=== PATIENT | female | born 1985 | race Caucasian/White ===

== ENCOUNTER 2018-09-17 07:26 | Inpatient (IN) ==
[2018-09-17] MEDS ORDERED: 0.9 % Sodium Chloride 1,000 ML IVC ONE (07:53)
[2018-09-17] MEDS ORDERED: Clindamycin 600 MG/50 ML 600 MG/50 ML IV.SOLN IVPB ONE (07:57)
[2018-09-17] MEDS ORDERED: Lidocaine/EPI 1:100k 1% 50 ML VIAL INFILT ONE (07:58)
[2018-09-17] MEDS ORDERED: Tdap (Boostrix) Vaccine 0.5 ML SYRINGE IM ONE (08:02)
--- NOTE | 2018-09-17 08:04 | Emergency Department Note ---
Disposition Clinical Impression: Cellulitis and abscess of upper arm and forearm Cellulitis Qualifiers: Site of cellulitis: extremity Site of cellulitis of extremity: lower extremity Laterality: right Qualified Code(s): L03.115 - Cellulitis of right lower limb Abscess of skin or subcutaneous tissue Qualifiers: Site of cutaneous abscess: extremity Site of cutaneous abscess of extremity: lower extremity Laterality: right Qualified Code(s): L02.415 - Cutaneous abscess of right lower limb Disposition: Admitted As Inpatient Condition: Fair Time of Disposition: 09:00 Skin/Abscess/FB HPI Chief complaint: ED Skin/Abscess/Foreign Body Stated complaint: RLE/LUE abscess Time Seen by Provider: 09/17/18 07:31 Source: patient, family Mode of arrival: private vehicle Limitations: no limitations Nursing Notes Reviewed: Yes Vital Signs Reviewed: Yes Pt Subjective Complaint: abscess/boil, discoloration Onset (ago): week(s) (1) Tetanus Up to Date: no Location: LUE (wrist), R foot Severity: moderate Quality: burning, aching Consistency: constant Improves with: none Worsens with: palpation, other (weight bearing increases pain, but movement of toes/fingers does NOT increase the pain) Context: other (Drug use, but patient currently denies IV drug use. ) Associated symptoms: Reports: nausea, malaise. Denies: fever, chills, rigors, itching, vomiting, arthralgias, myalgias, cough, shortness of breath Treatments prior to arrival: bandages, OTC topical medication (Betadine) Home Medications Medication Instructions Recorded Confirmed No Known Home Drugs 09/17/18 09/17/18 Allergies Allergy/AdvReac Type Severity Reaction Status Date / Time No Known Allergies Allergy Verified 09/17/18 14:36 All systems ED: reviewed and negative except as stated. Review of Systems: As Per HPI Constitutional: Denies: fever, chills, weakness Cardiovascular: Denies: chest pain, palpitations Respiratory: Denies: cough, dyspnea, wheezes Gastrointestinal: Reports: nausea. Denies: abdominal pain, vomiting Musculoskeletal: Denies: back pain, neck pain, joint swelling, arthralgia, myalgia Integumentary: Denies: rash, pruritus Neurological: Denies: weakness, numbness, paresthesias Hematological/Lymphatic: Denies: easy bleeding, easy bruising, lymphadenopathy Past Medical History - Past Medical History Attestation: Yes The following information was validated with the patient. Source: patient Medical history: Reports: non-contributory Surgical history: Reports: Psychiatric history: Reports: no psych history LMP comments: week(s) (4) - Social History Smoking Status: Current every day smoker Smokeless Tobacco Status: No Alcohol use: Reports: none Drug use: Reports: opiates, methamphetamine Physical Exam - General Limitations: no limitations General appearance: alert, in no apparent distress - Head Head exam: atraumatic, normocephalic, normal inspection - Eye Eye exam: Present: normal appearance. Absent: scleral icterus, conjunctival injection, periorbital swelling - ENT ENT exam: mucous membranes moist - Neck Neck exam: Present: normal inspection, full ROM, trachea midline. Absent: meningismus - Respiratory Respiratory exam: Present: normal lung sounds bilaterally. Absent: respiratory distress - Cardiovascular Cardiovascular exam: Present: regular rate, normal rhythm - Extremities Exam Extremities exam: Present: full ROM, normal capillary refill. Absent: joint swelling, calf tenderness - Expanded Lower Extremity Exam Hip/Pelvis exam: Present: full ROM Knee exam: Present: normal inspection, full ROM. Absent: tenderness Lower leg exam: Present: normal inspection, Achilles tendon intact. Absent: tenderness, Homans' sign Ankle exam: Present: erythema. Absent: tenderness Foot/toe exam: Present: tenderness, swelling, erythema, other (abscess and cellulitis) 1 - cellulitis 2 - lymphangitis 3 - abscess Neurovascular/Tendon exam: Present: normal capillary refill, normal fine/light touch, other (No pain with passive or active ROM of the right toes). Absent: pulse deficit, motor deficit, sensory deficit, extremity cold to touch, pallor, foot drop, significant pain with passive ROM of distal joint Gait: observed and limited by pain, antalgic - Back Exam Back exam: Present: normal inspection - Neurological Exam Neurological exam: Present: alert, oriented X3, CN II-XII intact - Psychiatric Psychiatric exam: Present: normal affect, normal mood - Skin Skin exam: Present: warm, dry, intact, normal color Course Vital Signs Temperature 98.3 F 09/17/18 07:28 Pulse Rate 87 09/17/18 07:28 Respiratory Rate 18 09/17/18 07:28 Blood Pressure 117/80 09/17/18 07:28 O2 Sat by Pulse Oximetry 99 09/17/18 07:28 Temperature 98.1 F 09/17/18 15:14 Pulse Rate 70 09/17/18 15:14 Respiratory Rate 16 09/17/18 15:14 Blood Pressure 122/79 09/17/18 15:14 O2 Sat by Pulse Oximetry 98 09/17/18 15:14 Oxygen Delivery Oxygen Delivery Room Air Skin/Abscess/Foreign Body - Lab Data Result diagrams: 09/17/18 08:19 09/17/18 08:19 Lab Results 09/17/18 09/17/18 09/17/18 Range/Units 08:19 08:19 08:30 WBC 11.5 H (4.3-11.1) K/mcL RBC 3.48 L (3.82-4.97) M/mcL Hgb 11.7 (11.5-15.4) g/dL Hct 34.9 L (35.3-44.9) % MCV 100.3 H (83.0-100.0) fL MCH 33.6 H (28.0-33.3) pg MCHC 33.5 (31.6-35.5) g/dL RDW 12.2 (11.5-14.5) % Plt Count 153 (140-400) K/mcL MPV 10.8 (9.4-12.4) fL Immature Gran % 0.4 (0-4) % Seg Neutrophils % 77.2 % Lymphocytes % 13.3 % Monocytes % 7.1 % Eosinophils % 1.7 % Basophils % 0.3 % Neutrophils # 8.9 (1.6-8.9) K/mcL Lymphocytes # 1.5 (0.6-4.6) K/mcL Monocytes # 0.8 (0.0-1.3) K/mcL Eosinophils # 0.2 (0.0-0.6) K/mcL Basophils # 0.0 (0.0-0.2) K/mcL Reactive Lymphocytes Present A (Not Present) Platelet Estimate Normal (Normal) Sodium 139 (136-145) mEq/L Potassium 4.0 (3.5-5.1) mEq/L Chloride 108 H (98-107) mEq/L Carbon Dioxide 25 (23-29) mEq/L BUN 20 (6-20) mg/dL Creatinine 1.06 (0.60-1.20) mg/dL Est GFR ( Amer) > 60 (> 60) Est GFR (Non-Af Amer) > 60 (> 60) BUN/Creatinine Ratio 19 (6-26) Glucose 86 (70-105) mg/dL Calculated Osmolality 290 (280-300) Calcium 8.6 (8.6-10.3) mg/dL Urine Test Negative (Negative) Attestation Statement - Attestation Attestation: Patient was seen with resident physician. I reviewed the history, physical, assessment and plan, and agree with the findings. I also personally evaluated this patient and had [id number] time with this patient. 32-year-old female presents to the emergency department with multiple abscesses at IV drug injection sites. Patient states symptoms of been ongoing for greater than a week. Comes in today for evaluation and treatment. She has some diaphoresis along with that. She is not sure about fevers or chills. Review of systems as above remainder negative. Physical exam vital signs are stable. ENT is unremarkable. Heart regular rate. Lungs clear. Abdomen is soft and nontender. Extremities patient has abscesses in the right foot and left wrist. Neurologically intact. Skin abscesses as noted. Psych normal. ED course. Abscesses were drained. The one in the foot especially was very purulent and foul-smelling. Patient was started on IV antibiotics. She will need to be admitted for same. Hemodynamically she remained stable in the emerge ncy department. Agree with the physician assistant kitchen manager assessment and plan. We notified the hospitalist service as to the need for admission and agreed to accept the patient. ED procedures. 2 abscess drainages were performed by physician assistant kitchen manager. I was available for consultation as indicated and needed.
[2018-09-17 08:59] LABS: Basophils % 0.3 %; Eosinophils # 0.2 K/mcL (0.0-0.6); Eosinophils % 1.7 %; Hematocrit 34.9 % (35.3-44.9); Hemoglobin 11.7 g/dL (11.5-15.4); Immature Granulocytes % 0.4 % (0-4); Lymphocytes # 1.5 K/mcL (0.6-4.6); Lymphocytes % 13.3 %; Mean Corpuscular HGB Conc 33.5 g/dL (31.6-35.5); Mean Corpuscular Hemoglobin 33.6 pg (28.0-33.3); Mean Corpuscular Volume 100.3 fL (83.0-100.0); Mean Platelet Volume 10.8 fL (9.4-12.4); Monocytes # 0.8 K/mcL (0.0-1.3); Monocytes % 7.1 %; Neutrophils # 8.9 K/mcL (1.6-8.9); Platelet Count 153 K/mcL (140-400); Red Blood Count 3.48 M/mcL (3.82-4.97); Red Cell Distribution Width 12.2 % (11.5-14.5); Segmented Neutrophils % 77.2 %; White Blood Count 11.5 K/mcL (4.3-11.1)
[2018-09-17] MEDS ORDERED: Ondansetron 4 MG/2 ML VIAL IVP ONE (09:00)
[2018-09-17 09:02] LABS: Platelet Estimate Normal (Normal); Reactive Lymphocytes Present (Not Present)
[2018-09-17] MEDS ORDERED: Ondansetron 4 MG/2 ML VIAL ONE (09:02)
[2018-09-17 09:04] LABS: BUN/Creatinine Ratio 19 (6-26); Blood Urea Nitrogen 20 mg/dL (6-20); Calcium 8.6 mg/dL (8.6-10.3); Carbon Dioxide 25 mEq/L (23-29); Chloride 108 mEq/L (98-107); Glucose 86 mg/dL (70-105); Osmolality,Calculated 290 (280-300); Sodium 139 mEq/L (136-145); eGFR For African Americans > 60 (> 60); eGFR For Non-African Americans > 60 (> 60)
[2018-09-17] MEDS ORDERED: Ketorolac 15 MG/ML VIAL IVP ONE (09:22)
[2018-09-17] MEDS ORDERED: levoFLOXacin 500 MG/100 ML 500 MG/100 ML BAG IVPB ONE (09:29)
[2018-09-17] MEDS ORDERED: Naloxone 0.4 MG/ML INJ IVP PRN (09:45)
--- NOTE | 2018-09-17 09:46 | Internal Med History&Physical ---
Date of Encounter: 09/17/18 Time of Encounter: 09:45 Internal Medicine - H&P: HPI Chief complaint: foot pain and wound Admitted From: Home Plans for Post Hospital Care: Home History of present illness: Ms. Barrera is a 32 year old female with a past medical history of IV drug use including amphetamines cocaine and opiates came in complaining of 5 day history of swelling, redness and tenderness on the right foot and left wrist. She used IV fentanyl obtained from streets diluted with tap water through her wrist and right foot. Patient subsequently noticed redness and swelling the next day at the same site. She did not seek any medical attention. The redness swelling and pain significantly got worse over the next 4 days. Patient lives with mother noticed significant redness of right foot and brought her to the ER. Patient was evaluated in the ER was found to have extensive cellulitis and abscess on the right dorsum of the foot which was drained and packed as well as small abscess on the left forearm about 4-5 cm proximal to wrist which was also drained and packed. Patient was given clindamycin pending urine test. Patient did not report any fevers but mention feeling sick. Denies having any lightheadedness dizziness or syncopal episodes. Denies any chest pain difficulty breathing abdominal pain nausea vomiting or diarrhea. Patient denies getting any antibiotics over the past year. Patient was given 1 L of normal saline, tetanus booster and clindamycin in ER. Her urine test is negative. Of note when foot abscess was drained patient and family reported muddy color discharge with very foul smell. Podiatry was consulted. XR foot pending. She denies any allergies and currently not on any medications. Past Med Surg Social Fam HX - Past Medical History Medical history: non-contributory Psychiatric history: no psych history - Past Surgical History Additional surgical history: , tonsillectomy, appendectomy - Social History Smoking Status: Current every day smoker Smokeless Tobacco Status: No Alcohol use: none Drug use: opiates - Additional Family History Additional family history: Reviewed and non-contributory Internal Medicine - H&P: Meds Depo Shot 02/22/16 [History] cephALEXin [Keflex] 500 mg PO TID #21 capsule 03/09/17 [Rx] Allergy/AdvReac Type Severity Reaction Status Date / Time No Known Allergies Allergy Verified 03/09/17 16:01 All Systems PM: A 10-system review of systems was performed and is negative for pertinent findings except as documented above in the HPI. - Constitutional Vitals: Temp Pulse Resp BP Pulse Ox 98.3 F 82 18 119/78 99 09/17/18 08:46 09/17/18 08:46 09/17/18 08:46 09/17/18 08:46 09/17/18 08:46 Exam: Constitutional: Vitals as noted. Conversant. No Apparent Distress. Eyes : Sclera white, conjunctiva clear, no lid lag, PEARLA. ENT : Grossly normal hearing. Oropharyngeal exam unremarkable. Moist mucus membranes. No JVD, no cervical lymphadenopathy. no thyromegaly or mass. Respiratory : Clear to auscultation bilaterally. No accessory muscle use, rales, rhonchi or wheezes Cardiovascular : RRR, +S1, +S2. no murmur, gallop, rubs. No chest wall tenderness GI/Abdominal : Soft, Non-tender, Non-distended, normal bowel sounds, no peritoneal signs. no orgenomegaly or mass appreciated. no hernia. Musculoskeletal: no edema, warm extremities, pulses palpable and symmetrical in UE/LE. no calf tenderness. 2 cm incision with erythema pain and swelling extending to ankle. Foul smelling drainage. 0.5 cm incision with bandage on Lt wrist with minimal redness,pain and swelling. Intact sensation and mobility on all extremities Neurological: AO X3, CN II-XII grossly intact, grossly normal motor and sensory exam. Skin: as above Internal Med - H&P Results - Labs CBC & Chem 7: 09/17/18 08:19 09/17/18 08:19 Labs: Short CBC 09/17/18 Range/Units 08:19 WBC 11.5 H (4.3-11.1) K/mcL Hgb 11.7 (11.5-15.4) g/dL Hct 34.9 L (35.3-44.9) % Plt Count 153 (140-400) K/mcL Neutrophils # 8.9 (1.6-8.9) K/mcL BMP 09/17/18 08:19 Sodium 139 Potassium 4.0 Chloride 108 H Carbon Dioxide 25 BUN 20 Creatinine 1.06 Glucose 86 Calcium 8.6 - Assessment and Plan (1) Cellulitis and abscess of foot Current Visit: Yes Status: Acute Assessment and plan: Abscess and right foot and left forearm now drained in ER and with packing. Had extensive associated cellulitis extending to the ankle on Rt foot. Antibiotics broadened to vancomycin and Zosyn for now. Does not appear to be in sepsis. Obtain MRSA screening. Denies any antibiotic use in the last year. Without any other stigmata of endocarditis. No fevers or murmurs Follow-up wound and blood cultures. Possibility of anaerobic infection given foul-smelling discharge. Follow-up x-ray of the foot. Podiatry has been consulted. We will consider ID depending on hospital course. (2) Cellulitis and abscess of upper arm and forearm Current Visit: Yes Status: Acute Assessment and plan: As above (3) IVDU (intravenous drug user) Current Visit: Yes Status: Acute Assessment and plan: Patient admits to using fentanyl at the site of infection. Previously was on Suboxone program but was dismissed from the program as she took fentanyl herself. Patient is willing to participate in drug rehabilitation. Will obtain social media job titles consult. - Time Spent With Patient Total time spent is greater than 50% in coordination of care (as documented) at patient's floor/unit and/or counseling patient:
[2018-09-17] MEDS ORDERED: Ketorolac 15 MG/ML VIAL IVP PRN (09:57)
[2018-09-17] MEDS ORDERED: Acetaminophen 325 MG TABLET PO PRN (09:59)
[2018-09-17] MEDS: Piperacillin/Tazobactam 3.375 GM in 0.9 % Sodium Chloride Mini Bag 100 ML IVPB SCH ×3 (11:46→23:49)
[2018-09-17] MEDS: Nicotine 14 MG PATCH.TD24 TD SCH (15:27)
[2018-09-18 08:17] LABS: Basophils % 0.4 %; Eosinophils # 0.2 K/mcL (0.0-0.6); Eosinophils % 2.4 %; Hematocrit 35.1 % (35.3-44.9); Hemoglobin 11.9 g/dL (11.5-15.4); Immature Granulocytes % 0.4 % (0-4); Lymphocytes # 1.9 K/mcL (0.6-4.6); Lymphocytes % 21.9 %; Mean Corpuscular HGB Conc 33.9 g/dL (31.6-35.5); Mean Corpuscular Hemoglobin 33.3 pg (28.0-33.3); Mean Corpuscular Volume 98.3 fL (83.0-100.0); Mean Platelet Volume 10.5 fL (9.4-12.4); Monocytes # 0.4 K/mcL (0.0-1.3); Monocytes % 4.7 %; Platelet Count 168 K/mcL (140-400); Red Blood Count 3.57 M/mcL (3.82-4.97); Red Cell Distribution Width 12.1 % (11.5-14.5); Segmented Neutrophils % 70.2 %; White Blood Count 8.5 K/mcL (4.3-11.1)
[2018-09-18 08:34] LABS: BUN/Creatinine Ratio 20 (6-26); Blood Urea Nitrogen 22 mg/dL (6-20); Calcium 8.6 mg/dL (8.6-10.3); Carbon Dioxide 25 mEq/L (23-29); Chloride 107 mEq/L (98-107); Glucose 96 mg/dL (70-105); Osmolality,Calculated 295 (280-300); Potassium 4.1 mEq/L (3.5-5.1); Sodium 141 mEq/L (136-145); eGFR For African Americans > 60 (> 60); eGFR For Non-African Americans 59 (> 60)
[2018-09-18] MEDS: Piperacillin/Tazobactam 3.375 GM in 0.9 % Sodium Chloride Mini Bag 100 ML IVPB SCH ×2 (08:37→15:41)
[2018-09-18] MEDS: Nicotine 14 MG PATCH.TD24 TD SCH (08:38)
[2018-09-18] MEDS ORDERED: Acetaminophen 325 MG TABLET PO PRN (11:19)
[2018-09-18] MEDS: Ketorolac 15 MG/ML VIAL IVP PRN ×2 (12:05→17:44)
[2018-09-18] MEDS: hydrOXYzine pamoate 25 MG CAPSULE PO PRN ×2 (12:05→17:44)
[2018-09-18] MEDS: Ondansetron 4 MG/2 ML VIAL IVP SCH ×2 (12:06→15:48)
--- NOTE | 2018-09-18 13:23 | Internal Med Progress Note ---
Hospitalist Progress Note - Encounter Date of Encounter: 09/18/18 Time of Encounter: 10:00 - Subjective Interval History: No major events overnight. Patient was seen this a.m. sHe denied fever, chills or night sweats. sHe has no nausea, vomiting or abdominal pain. Patient denied chest pain, shortness of breath or palpitation. She feels that she is anxious and she is withdrawing from opiates. - Exam Vitals: Temp Pulse Resp BP Pulse Ox 98.2 F 76 15 112/73 98 09/18/18 10:14 09/18/18 10:14 09/18/18 10:14 09/18/18 10:14 09/18/18 10:14 Exam: General: Patient is alert, oriented 3. No acute distress Head: Atraumatic, normal inspection, normocephalic. Eye: EOMI, PERRLA, no scleral icterus noted. ENT: Mucous membranes moist. Neck: Normal inspection, Respiratory: No respiratory distress, rhonchi, or wheezes noted. Cardiovascular: Regular rate and regular rhythm, S1 and S2 audible. No murmurs, rubs, or gallops. GI: Soft, nondistended, normal bowel sounds. Extremities: Right LE dressing and left UE dressing. Neurological: Alert, oriented 3, no focal deficits. Psychiatric: normal affect, normal mood. Skin: Dry, intact, warm. Normal color. No rashes. - Assessment and Plan (1) Cellulitis and abscess of foot Current Visit: Yes Status: Acute (2) Cellulitis and abscess of upper arm and forearm Current Visit: Yes Status: Acute (3) IVDU (intravenous drug user) Current Visit: Yes Status: Acute (4) Opiate withdrawal Current Visit: Yes Status: Acute - Summary of Assessment and Plan Summary of Assessment and Plan: Ms. Barrera is a 32 year old female with a past medical history of IV drug use including amphetamines cocaine and opiates came in complaining of 5 day history of swelling, redness and tenderness on the right foot and left wrist. he used IV fentanyl obtained from streets diluted with tap water through her wrist and right foot. her symptoms are managed as following: Right foot abscess: - s/p I&D in the ER, cultures are pending. - She is afebrile, hemodynamically stable. Leukocytosis improved. MRSA swab is positive - Foot x ray: Focal dorsal soft tissue swelling along the metatarsal. No signs of OM. - On renally dosed vancomycin and Zosyn. We will continue - Tylenol for mild pain, Toradol for moderate to severe pain. We will absolutely avoid opiates. - Check CBC tomorrow Left upper extremity abscess: - s/p I&D in the ER, cultures are pending. - Management as per above Opiate withdrawal: - Zofran for nausea number Imodium for diarrhea, Vistaril for anxiety. Discussed with pharmacist and RN. IV drug abuse: - bingo worker consult place. - Patient is interested to go to methadone clinic after discharge DVT prophylaxis: Not Indicated as the patient is ambulating. I reviewed independently all laboratory workup, pertinent images including x- rays and CT scans. I also reviewed independently and EKGs and my findings are in the body of my assessment and plan. I ordered the laboratory workup and images myself. I discussed finding with patient's, their families, RN's and consultants involved in the care of the patient. - Time Spent with Patient Total time spent is greater than 50% in coordination of care (as documented) at patient's floor/unit and/or counseling patient: Greater than 35 minutes Plan of Care Discussed with: patient Internal Medicine: Result - Labs CBC & Chem 7: 09/18/18 07:56 09/18/18 07:56 Labs: Short CBC 09/18/18 Range/Units 07:56 WBC 8.5 (4.3-11.1) K/mcL Hgb 11.9 (11.5-15.4) g/dL Hct 35.1 L (35.3-44.9) % Plt Count 168 (140-400) K/mcL Neutrophils # 6.0 (1.6-8.9) K/mcL BMP 09/18/18 07:56 Sodium 141 Potassium 4.1 Chloride 107 Carbon Dioxide 25 BUN 22 H Creatinine 1.09 Glucose 96 Calcium 8.6 Consult Discharge Plan - Plan Referrals: NONE,PCP [Primary Care Provider] -
--- NOTE | 2018-09-18 17:45 | Podiatry Consult Note ---
Date of Encounter: 09/18/18 Time of Encounter: 14:26 Assessment and Plan (1) Cellulitis and abscess of foot Current visit: Yes Status: Acute Assessment: Right foot ulcer with purulent drainage upon palpation of forefoot WBC 8.5, afebrile Wound cultures pending, blood cultures pending Erythema and edema noted, does not extend beyond demarcation line XR negative for osseus abnormality Currently on zosyn and vancomycin Plan: MR ordered of right foot to evaluate for abscess Continue local wound care and IV ATB Cleansed foot with 0.9 NS, packed with 1/4 inch iodaform gauze, covered with 4x4 dry gauze, ABD pad, kerlix, and medipore History of Present Illness Chief complaint: Right foot ulcer HPI: Ms. Barrera is a 32 year old female who presented to the ER yesterday for right foot ulceration. Patient has no past medical history. Patient reports she is IV drug abuser, mainly abuses heroin. Reports smoking half pack a day. Denies any alcohol abuse. Briefly, patient reports injecting IV heroin on Tuesday and stating she missed. Reports increased edema and erythema. Reports pain was intolerable on Tuesday and mother brought her to the ER on Tuesday. Again Ms. Barrera is a 32-year-old female who was consulted to podiatry for a right foot ulceration. X-ray upon admission was negative for any osseous abnormality. WBC 8.5. Cultures pending. Denies any fevers, chills, nausea, vomiting, or diarrhea. Denies any calf pain, chest pain, or shortness of breath. Reports improvement in erythema and edema since starting IV antibiotics. No other questions or concerns at this time. Past Med Surg Social Fam HX - Past Medical History Medical history: non-contributory Psychiatric history: no psych history - Past Surgical History Surgical History: appendectomy, Additional surgical history: tonsilectomy - Social History Smoking Status: Current every day smoker Packs per day: 1/2 Smokeless Tobacco Status: No Alcohol use: none Drug use: opiates, methamphetamine, IV Drug Use Medications and Allergies No Known Home Drugs 09/17/18 [History] Allergy/AdvReac Type Severity Reaction Status Date / Time No Known Allergies Allergy Verified 09/17/18 14:36 All Systems Reviewed: The remainder of the systems were reviewed and are negative - Constitutional Constitutional: no fever(s) - Cardiovascular Cardiovascular: pedal edema, other (pedal ulcer), no chest pain - Respiratory Respiratory: no cough, no dyspnea - Musculoskeletal Musculoskeletal: other (edema and pain right foot) Physical Exam - Constitutional Vitals: Temp Pulse Resp BP Pulse Ox 98.5 F 101 16 112/73 96 09/18/18 15:09 09/18/18 15:09 09/18/18 15:09 09/18/18 15:09 09/18/18 15:09 Exam: Constitiutional: Alert and oriented x 3. Well nourished. No acute distress noted Vascular: 3/4 DP/PT RLE CFT <3 sec to all digits RLE, warm to warm from tibia to toes RLE, no calf pain with squeeze RLE Neurologic: Sensation to touch, normal plantar response Dermatologic: Erythema and edema noted to right foot, does not extend beyond demarcation line, ulceration noted to right forefoot measuring 2 x 0.7 x 0.3 cm, purulent drainage noted, no undermining or tunneling noted Musculoskeletal: 5/5 muscle strength and normal tone RLE Results - Labs Result Diagrams: 09/18/18 07:56 09/18/18 07:56 Labs: Abnormal lab results WBC 11.5 K/mcL (4.3-11.1) H 09/17/18 08:19 RBC 3.57 M/mcL (3.82-4.97) L 09/18/18 07:56 Hct 35.1 % (35.3-44.9) L 09/18/18 07:56 MCV 100.3 fL (83.0-100.0) H 09/17/18 08:19 MCH 33.6 pg (28.0-33.3) H 09/17/18 08:19 Reactive Lymphocytes Present (Not Present) A 09/17/18 08:19 Chloride 108 mEq/L (98-107) H 09/17/18 08:19 BUN 22 mg/dL (6-20) H 09/18/18 07:56 Est GFR (Non-Af Amer) 59 (> 60) L 09/18/18 07:56 Nasal Screen MRSA (PCR) Positive (Negative) A 09/17/18 14:25 H & H 07/15/19 Range/Units 07:56 Hgb 11.9 (11.5-15.4) g/dL Hct 35.1 L (35.3-44.9) % All other labs normal. - Diagnostic results Ankle/Foot x-ray: report reviewed Consult Discharge Plan - Plan Referrals: NONE,PCP [Primary Care Provider] -
[2018-09-19] MEDS: Ondansetron 4 MG/2 ML VIAL IVP SCH ×4 (02:21→19:48)
[2018-09-19] MEDS: Piperacillin/Tazobactam 3.375 GM in 0.9 % Sodium Chloride Mini Bag 100 ML IVPB SCH ×3 (02:22→15:55)
[2018-09-19 07:38] LABS: Hematocrit 36.2 % (35.3-44.9); Hemoglobin 12.2 g/dL (11.5-15.4); Mean Corpuscular HGB Conc 33.7 g/dL (31.6-35.5); Mean Corpuscular Hemoglobin 33.4 pg (28.0-33.3); Mean Corpuscular Volume 99.2 fL (83.0-100.0); Mean Platelet Volume 10.3 fL (9.4-12.4); Platelet Count 209 K/mcL (140-400); Red Blood Count 3.65 M/mcL (3.82-4.97); Red Cell Distribution Width 12.2 % (11.5-14.5)
[2018-09-19 07:57] LABS: BUN/Creatinine Ratio 19 (6-26); Blood Urea Nitrogen 23 mg/dL (6-20); Calcium 8.8 mg/dL (8.6-10.3); Carbon Dioxide 26 mEq/L (23-29); Chloride 107 mEq/L (98-107); Glucose 84 mg/dL (70-105); Osmolality,Calculated 299 (280-300); Potassium 4.1 mEq/L (3.5-5.1); Sodium 143 mEq/L (136-145); eGFR For African Americans > 60 (> 60); eGFR For Non-African Americans 51 (> 60)
[2018-09-19] MEDS: Ketorolac 15 MG/ML VIAL IVP PRN ×2 (08:26→15:54)
[2018-09-19] MEDS: hydrOXYzine pamoate 25 MG CAPSULE PO PRN ×2 (08:27→15:55)
[2018-09-19] MEDS: Nicotine 14 MG PATCH.TD24 TD SCH (08:27)
[2018-09-19] MEDS: Ringers Solution, Lactated 1,000 ML IVC SCH (11:18)
--- NOTE | 2018-09-19 14:43 | Podiatry Progress Note ---
Date of Encounter: 09/19/18 Time of Encounter: 13:28 - Assessment and Plan (1) Cellulitis and abscess of foot Current Visit: Yes Status: Acute Assessment: Right foot ulcer with purulent drainage upon palpation of forefoot Tunneling WBC 7.0, afebrile noted to 5 o'clock, 2 cm Wound cultures gram negative rods x 2 specimens, blood cultures pending Erythema and edema noted, does not extend beyond demarcation line, improved from previous XR negative for osseus abnormality Currently on zosyn and vancomycin Plan: MR ordered of right foot to evaluate for abscess, pending Continue local wound care and IV ATB Plan for OR tomorrow NPO after MN Cleansed foot with 0.9 NS, packed with 1/4 inch iodaform gauze, covered with 4x4 dry gauze, ABD pad, kerlix, and medipore Subjective Interval history: Patient awake in bed. Alert and oriented x 3. Discussed need for surgical intervention, patient agreeable. Denies any fevers, chills, nausea, vomiting, or diarrhea. Denies any calf pain, chest pain, or shortness of breath. No other questions or concerns at this time. Objective - Vital Signs Vital Signs: Vital Signs Temp Pulse Resp BP Pulse Ox 09/19/18 14:11 98.6 F 70 15 110/71 99 09/19/18 10:51 98.5 F 71 15 121/81 98 09/19/18 07:43 98.4 F 60 15 119/78 97 09/19/18 04:41 98.2 F 60 15 119/71 97 09/18/18 20:18 98.5 F 14 14 114/77 98 09/18/18 15:09 98.5 F 101 16 112/73 96 Intake and Output 09/18/18 09/19/18 09/19/18 23:59 07:59 15:59 Intake Total 470 / 1890 150 / 620 470 / 620 Balance 470 / 1890 150 / 620 470 / 620 Intake: IV Fluids 350 / 1050 150 / 500 350 / 500 Cleocin Premix 600 MG/50 ML 600 50 / 50 mg In 50 ml @ 50 mls/hr IVPB ONCE ONE Rx#:[id number] Zosyn 3.375 GM In 0.9 % Sodium 100 / 300 100 / 200 100 / 200 Chloride (Mini-Bag +) 100 ML @ 25 mls/hr IVPB Q8HR [facility] Rx#: [id number] Vancocin 1,000 MG In 0.9 % 250 / 750 250 / 250 Sodium Chloride 250 ML @ 167 mls/hr IVPB Q12H [facility] Rx#: [id number] Oral 120 / 840 120 / 120 Other: Meal Dinner Percent of Meal Consumed 50% # Voids 1 # Bowel Movements 1 Weight 72 kg Patient Weight 09/19/18 23:59 Weight 72 kg - Lab Result Diagrams: 09/19/18 06:51 09/19/18 06:51 Labs: Abnormal lab results WBC 11.5 K/mcL (4.3-11.1) H 09/17/18 08:19 RBC 3.65 M/mcL (3.82-4.97) L 09/19/18 06:51 Hct 35.1 % (35.3-44.9) L 09/18/18 07:56 MCV 100.3 fL (83.0-100.0) H 09/17/18 08:19 MCH 33.4 pg (28.0-33.3) H 09/19/18 06:51 Reactive Lymphocytes Present (Not Present) A 09/17/18 08:19 Chloride 108 mEq/L (98-107) H 09/17/18 08:19 BUN 23 mg/dL (6-20) H 09/19/18 06:51 Creatinine 1.23 mg/dL (0.60-1.20) H 09/19/18 06:51 Est GFR (Non-Af Amer) 51 (> 60) L 09/19/18 06:51 Nasal Screen MRSA (PCR) Positive (Negative) A 09/17/18 14:25 Vancomycin Trough 13 mcg/mL (5-10) H 09/19/18 09:08 Microbiology, Last 48 Hours 09/17/18 09:10 Wound Culture - Preliminary Right Foot Gram Negative Juan Gram Negative Juan#2 09/17/18 08:19 Blood Culture - Preliminary Peripheral Venipuncture Culture is incubating and being continuously monitored for growth. Final report to follow. 09/17/18 09:59 Blood Culture - Preliminary Peripheral Venipuncture Culture is incubating and being continuously monitored for growth. Final report to follow. Consult Discharge Plan - Plan Referrals: NONE,PCP [Primary Care Provider] -
--- NOTE | 2018-09-19 15:52 | Internal Med Progress Note ---
Hospitalist Progress Note - Encounter Date of Encounter: 09/19/18 Time of Encounter: 10:00 - Subjective Interval History: No major events overnight. Patient was seen this a.m. He denied fever, chills or night sweats. SHe has no nausea, vomiting or abdominal pain. Patient denied chest pain, shortness of breath or palpitation. She feels that her withdrawal symptoms are under control. - Exam Vitals: Temp Pulse Resp BP Pulse Ox 98.6 F 70 15 110/71 99 09/19/18 14:11 09/19/18 14:11 09/19/18 14:11 09/19/18 14:11 09/19/18 14:11 Exam: General: Patient is alert, oriented 3. No acute distress Head: Atraumatic, normal inspection, normocephalic. Eye: EOMI, PERRLA, no scleral icterus noted. ENT: Mucous membranes moist. Neck: Normal inspection, Respiratory: No respiratory distress, rhonchi, or wheezes noted. Cardiovascular: Regular rate and regular rhythm, S1 and S2 audible. No murmurs, rubs, or gallops. GI: Soft, nondistended, normal bowel sounds. Extremities: Right LE dressing and left UE dressing. Neurological: Alert, oriented 3, no focal deficits. Psychiatric: normal affect, normal mood. Skin: Dry, intact, warm. Normal color. No rashes. - Assessment and Plan (1) Cellulitis and abscess of foot Current Visit: Yes Status: Acute (2) Cellulitis and abscess of upper arm and forearm Current Visit: Yes Status: Acute (3) IVDU (intravenous drug user) Current Visit: Yes Status: Acute (4) Opiate withdrawal Current Visit: Yes Status: Acute - Summary of Assessment and Plan Summary of Assessment and Plan: Ms. Barrera is a 32 year old female with a past medical history of IV drug use including amphetamines cocaine and opiates came in complaining of 5 day history of swelling, redness and tenderness on the right foot and left wrist. he used IV fentanyl obtained from streets diluted with tap water through her wrist and right foot. her symptoms are managed as following: Right foot abscess: - s/p I&D in the ER, cultures are growing gram-negative rods. MRSA swab is positive - She is afebrile, hemodynamically stable. Leukocytosis resolved - Foot x ray: Focal dorsal soft tissue swelling along the metatarsal. No signs of OM. - On renally dosed vancomycin and Zosyn. We will continue day 2 - Tylenol for mild pain, Toradol for moderate to severe pain. We will absolutely avoid opiates. - pdoiatry is consulted, plan for MRI today to rule out OM. Plan for OR tomorrow LEXIE: NEW EVENT - Creatinine is 1.23, is on his 1 - We will start her on IV fluid, monitor BMP tomorrow. Left upper extremity abscess: - s/p I&D in the ER. - Management as per above Opiate withdrawal: - Zofran for nausea number Imodium for diarrhea, Vistaril for anxiety. Discu ssed with pharmacist and RN. IV drug abuse: - kiln worker consult place. - Patient is interested to go to methadone clinic after discharge DVT prophylaxis: Not Indicated as the patient is ambulating. I reviewed independently all laboratory workup, pertinent images including x- rays and CT scans. I also reviewed independently and EKGs and my findings are in the body of my assessment and plan. I ordered the laboratory workup and images myself. I discussed finding with patient's, their families, RN's and consultants involved in the care of the patient. - Time Spent with Patient Total time spent is greater than 50% in coordination of care (as documented) at patient's floor/unit and/or counseling patient: Internal Medicine: Result - Labs CBC & Chem 7: 09/19/18 06:51 09/19/18 06:51 Labs: Short CBC 09/19/18 Range/Units 06:51 WBC 7.0 (4.3-11.1) K/mcL Hgb 12.2 (11.5-15.4) g/dL Hct 36.2 (35.3-44.9) % Plt Count 209 (140-400) K/mcL BMP 09/19/18 06:51 Sodium 143 Potassium 4.1 Chloride 107 Carbon Dioxide 26 BUN 23 H Creatinine 1.23 H Glucose 84 Calcium 8.8 Consult Discharge Plan - Plan Referrals: NONE,PCP [Primary Care Provider] -
[2018-09-20] MEDS: Ondansetron 4 MG/2 ML VIAL IVP SCH ×4 (00:05→17:37)
[2018-09-20] MEDS: Piperacillin/Tazobactam 3.375 GM in 0.9 % Sodium Chloride Mini Bag 100 ML IVPB SCH ×3 (04:49→16:42)
[2018-09-20] MEDS ORDERED: Vancomycin 1,000 MG, 0.9 % Sodium Chloride 1,000 ML IR ONE ×2 (06:00→14:34)
[2018-09-20 07:45] LABS: Hematocrit 33.1 % (35.3-44.9); Hemoglobin 11.1 g/dL (11.5-15.4); Mean Corpuscular HGB Conc 33.5 g/dL (31.6-35.5); Mean Corpuscular Hemoglobin 32.9 pg (28.0-33.3); Mean Corpuscular Volume 98.2 fL (83.0-100.0); Mean Platelet Volume 10.1 fL (9.4-12.4); Platelet Count 243 K/mcL (140-400); Red Blood Count 3.37 M/mcL (3.82-4.97); Red Cell Distribution Width 11.9 % (11.5-14.5); White Blood Count 6.5 K/mcL (4.3-11.1)
[2018-09-20 08:09] LABS: BUN/Creatinine Ratio 22 (6-26); Blood Urea Nitrogen 28 mg/dL (6-20); Calcium 8.7 mg/dL (8.6-10.3); Carbon Dioxide 25 mEq/L (23-29); Chloride 105 mEq/L (98-107); Glucose 90 mg/dL (70-105); Osmolality,Calculated 297 (280-300); Potassium 3.9 mEq/L (3.5-5.1); Sodium 141 mEq/L (136-145); eGFR For African Americans > 60 (> 60); eGFR For Non-African Americans 50 (> 60)
[2018-09-20] MEDS: Ringers Solution, Lactated 1,000 ML IVC SCH (09:27)
[2018-09-20] MEDS: Nicotine 14 MG PATCH.TD24 TD SCH (09:28)
[2018-09-20] MEDS ORDERED: 0.9 % Sodium Chloride 1,000 ML IVC SCH ×2 (10:15→14:34)
--- NOTE | 2018-09-20 12:27 | Anesthesia Evaluation PreOp ---
Date of Encounter: 09/20/18 Time of Encounter: 12:25 - Past History Planned Operation: I & D Right Foot Cardiac History: Denies any Significant Hx Pulmonary History: Smoker (13 years) HEALTH AND SAFETY TECH History: Denies Any Significant HX Other Medical History: Denies Any Significant HX Anesthesia History: No Prior Anesthetic Complications, Past Anesthesia Alcohol Use: none Drug use: opiates (last used IV fentanyl 09/15/2018), methamphetamine, IV Drug Use (last used heroin 09/16) Medications and Allergies No Known Home Drugs 09/17/18 [History] Allergy/AdvReac Type Severity Reaction Status Date / Time No Known Allergies Allergy Verified 09/17/18 14:36 - Meds/Allergy Pre-op Review Medications Reviewed: Yes Allergies Reviewed: Yes Beta Blockers on Current Med List: No Anesthesia Results - Labs 09/20/18 07:05 09/20/18 07:05 Anesthesia Exam Vital Signs/O2 Sat/Glucose, Most Recent Temp Pulse Resp BP Pulse Ox 98.6 F 52 18 143/72 98 09/20/18 11:58 09/20/18 11:58 09/20/18 11:58 09/20/18 11:58 09/20/18 11:58 Blood Glucose* 80 Height: 5'5''/1.65m Weight: 162 lbs/73.8 kg NPO (# of Hours): 8 Pain Scale: 0 Pain Scale Used: Numeric (1 - 10) - HEENT Pupil (Motor): EOMI Mallampati: II Teeth: Missing, Poor dentition Oral Opening: Greater than 3 - HEALTH AND SAFETY TECH LOC: Oriented HEALTH AND SAFETY TECH Motor: Normal RUE, Normal LUE, Normal RLE, Normal LLE, Normal Face HEALTH AND SAFETY TECH Sensory: Normal: RUE, LUE, RLE, LLE, Face - Cardiac Rhythm: Regular Murmur: None - Pulmonary Breath Sounds: bilateral Clear Respiratory Effort: Symmetrical Anesthesia Assess/Plan ASA Score: 3 Level of consciousness: Cooperative, Oriented, Tranquil Anesthetic Plan: General Monitoring Plan: Standard Monitors Recovery Plan: PACU
[2018-09-20] MEDS ORDERED: *HR* HYDROmorphone (PF) 1 MG/ML SYRINGE IVP PRN (12:36)
[2018-09-20] MEDS ORDERED: *HR* OxyCODONE Immed Rel 5 MG TABLET PO PRN (12:36)
[2018-09-20] MEDS ORDERED: Bupivacaine-MPF 0.25% 10 ML VIAL ONE ×2 (12:42→12:44)
[2018-09-20] MEDS ORDERED: *HR* FentaNYL (PF) 100 MCG/2 ML VIAL ONE (12:51)
[2018-09-20] MEDS ORDERED: *HR* Midazolam HCl 2 MG/2 ML VIAL ONE (12:51)
[2018-09-20] MEDS ORDERED: *HR* Propofol 200 MG/20 ML VIAL IVP ONE (12:51)
[2018-09-20] MEDS ORDERED: Bupivacaine/EPI 1:200k 0.25%PF 30 ML VIAL ONE (12:59)
--- NOTE | 2018-09-20 13:04 | Podiatry Progress Note ---
Date of Encounter: 09/20/18 Time of Encounter: 12:30 - Assessment and Plan (1) Abscess of right foot Current Visit: Yes Status: Acute Reviewed with patient her condition, my findings and treatment options. Discussed with patient the infection present and doing an incision and drainage and removal of nonviable tissue. Nature of this procedure, risks versus benefits potential complications consequences of surgery in her condition discussed at length. All questions answered informed consent was signed. No guarantees made as to the outcome of any procedure and she understood that she would have an open wound that would still need to heal and it would be packed and could require future surgery. No guarantees were made as to her functionality over that she would not develop worsening infection that could result in loss of limb. Patient has been NPO and is being brought to the operating room. Subjective Interval history: 32-year-old female with history of IV drug abuse comes in with right foot infe ction which has been treated with IV antibiotics and cellulitis has resolved. There is persistent purulent drainage coming from the dorsal lateral foot wound. Denies fever, chills, nausea, vomiting, shortness of breath, chest pain, calf pain. Patient being brought to the operating room for incision and drainage. Objective - Vital Signs Vital Signs: Vital Signs Temp Pulse Resp BP Pulse Ox 09/20/18 11:58 98.6 F 52 18 143/72 98 09/20/18 08:20 98.3 F 56 18 128/85 98 09/20/18 03:39 98.2 F 60 16 123/81 98 09/19/18 19:21 98.5 F 67 18 119/77 98 09/19/18 14:11 98.6 F 70 15 110/71 99 Intake and Output 09/19/18 09/20/18 09/20/18 23:59 07:59 15:59 Intake Total 350 / 1210 1350 / 1350 Balance 350 / 1210 1350 / 1350 Intake: IV Fluids 350 / 850 1350 / 1350 Lactated Ringers 1,000 ML @ 125 1100 / 1100 mls/hr IVC .Q8H [facility] Rx#: [id number] Zosyn 3.375 GM In 0.9 % Sodium 100 / 300 Chloride (Mini-Bag +) 100 ML @ 25 mls/hr IVPB Q8HR [facility] Rx#: [id number] Vancocin 1,000 MG In 0.9 % 250 / 500 250 / 250 Sodium Chloride 250 ML @ 167 mls/hr IVPB Q12H [facility] Rx#: [id number] Oral 0 / 0 Other: # Voids 1 Weight 73.8 kg Blood Glucose* 127 80 Patient Weight 09/20/18 23:59 Weight 73.8 kg - Exam Exam: Well-developed and nourished female in no acute distress Sensation intact to touch. Erythema of the foot and ankle have resolved. There is purulent drainage able to be expressed from the ulceration dorsolateral foot. Pain with palpation of this area as well. No pain with ankle/foot range of motion. DP pulse palpable. - Lab Result Diagrams: 09/20/18 07:05 09/20/18 07:05 Labs: Abnormal lab results WBC 11.5 K/mcL (4.3-11.1) H 09/17/18 08:19 RBC 3.37 M/mcL (3.82-4.97) L 09/20/18 07:05 Hgb 11.1 g/dL (11.5-15.4) L 09/20/18 07:05 Hct 33.1 % (35.3-44.9) L 09/20/18 07:05 MCV 100.3 fL (83.0-100.0) H 09/17/18 08:19 MCH 33.4 pg (28.0-33.3) H 09/19/18 06:51 Reactive Lymphocytes Present (Not Present) A 09/17/18 08:19 Chloride 108 mEq/L (98-107) H 09/17/18 08:19 BUN 28 mg/dL (6-20) H 09/20/18 07:05 Creatinine 1.26 mg/dL (0.60-1.20) H 09/20/18 07:05 Est GFR (Non-Af Amer) 50 (> 60) L 09/20/18 07:05 Nasal Screen MRSA (PCR) Positive (Negative) A 09/17/18 14:25 Vancomycin Trough 13 mcg/mL (5-10) H 09/19/18 09:08 Microbiology, Last 48 Hours 09/17/18 09:10 Wound Culture - Final Right Foot Klebsiella oxytoca Klebsiella oxytoca#2 Consult Discharge Plan - Plan Referrals: NONE,PCP [Primary Care Provider] -
[2018-09-20] MEDS ORDERED: Acetaminophen IV 1,000 MG/100 ML INFUS..BTL ONE (13:05)
--- NOTE | 2018-09-20 13:10 | Operative Note ---
Date of procedure: 09/20/18 Pre-op diagnosis: Right foot abscess Post-op diagnosis: same Procedure: Incision and drainage right foot abscess Implants: None Complications: None Anesthesia: GETA Local Anesthetics: 0.25% Sensorcaine HCL with Epinephrine 1:200,000 SubQ (cc) Surgeon: Cesar Pretty Was there an retail loan originator assistant present: No Estimated blood loss (cc): 10 Specimen: tissue culture right foot-micro Condition: stable Disposition: PACU Procedure in Detail: Indications: 32-year-old female with history of IV drug abuse admitted with abscess and cellulitis of the right foot being brought to the operating room for an incision and drainage after having the nature of the procedure, risks versus benefits potential complications consequences of surgery in her condition discussed at length. No guarantees made as to the outcome. All questions answered informed consent was signed patient taken from preoperative holding area and operating room supine position 0.25% Marcaine with epinephrine injected into the patient's right foot. Right foot was scrubbed prepped and draped in the usual sterile fashion and tourniquet was applied but not inflated during the entire procedure Incision and drainage right foot. Attention directed dorsal lateral aspect of the patient's right foot where purulent drainage was expressed from the wound site. #15 blade was used to make an incision proximal and distal to this area. Purulent drainage was present with devitalized tissue which was excised. Purulent drainage was expressed from distal. The purulent drainage was coming from dorsal to the extesor tendons. Blunt dissection was carried out through deep fascia and into the interspace with clean instrumentation and it did not appear to be tracking deep. Devitalized tissue was excised and sent to microbiology. The site was irrigated with saline which contained vancomycin. Site was packed open with quarter-inch iodoform packing. A separate bandaging included Adaptic, 4 x 4 gauze Kerlix and an Jean Paul wrap. Patient tolerated the anesthesia and procedure well escorted to recovery room vital signs stable and adequate hemostasis. Patient will return to the floor where she will continue IV antibiotics.
[2018-09-20] MEDS ORDERED: Dexamethasone 4 MG/ML VIAL ONE ×2 (13:18)
[2018-09-20] MEDS ORDERED: Lidocaine -MPF 2% 2 ML VIAL ONE (13:25)
[2018-09-20] MEDS ORDERED: Ondansetron 4 MG/2 ML VIAL ONE (13:25)
--- NOTE | 2018-09-20 14:10 | Anesthesia Evaluation Post Op ---
Date of Encounter: 09/20/18 Time of Encounter: 14:10 - Vital Signs Vital Signs: Vital Signs/O2 Sat, Most Current Temp Pulse Resp BP Pulse Ox 97.0 F L 58 24 125/76 99 09/20/18 13:42 09/20/18 14:02 09/20/18 14:02 09/20/18 14:02 09/20/18 14:02 - Lungs Lungs: Clear Ascult./Percussion - Airway Airway: Non-obstructed - Cardiovascular Regular Rate - Mental Status Mental Status: Alert & Oriented, Answers Appropriately - Pain Pain Scale: 4 Pain Scale used: Numeric (1 - 10) - Nausea Vomiting Nausea Vomiting: Not Present - Hydration Hydration: Ice chips, Has not voided - Discharge PostOp Status: Transfer Patient to floor
[2018-09-20] MEDS ORDERED: Naloxone 0.4 MG/ML INJ IVP PRN (14:34)
[2018-09-20] MEDS ORDERED: Acetaminophen 325 MG TABLET PO PRN (14:34)
--- NOTE | 2018-09-20 16:44 | Internal Med Progress Note ---
Hospitalist Progress Note - Encounter Date of Encounter: 09/20/18 Time of Encounter: 09:30 - Subjective Interval History: No acute events. Patient has no new complaints this morning. She denies fever,chills and foot pain. - Exam Vitals: Temp Pulse Resp BP Pulse Ox 98.1 F 64 16 131/80 97 09/20/18 15:30 09/20/18 15:30 09/20/18 15:30 09/20/18 15:30 09/20/18 15:30 Exam: GENERAL: Not in distress. Alert and Oriented HEENT: EOMI, PERRLA MOUTH: Good oral hygiene NECK:No JVD, No lymph nodes. CHEST AND LUNGS: Normal breath sounds, no wheezes or crackles HEART: S1 and S2 normal, no murmurs ABDOMEN: Soft, nontender, no organomegaly EXTREMITIES: Clean dessing over left arm, Circular well defined wound on dorsum of foot packed with gauze and mild purulent discharge. NEUROLOGICAL: Normal cognition, normal motor and sensory exam. . - Assessment and Plan (1) Cellulitis and abscess of foot Current Visit: Yes Status: Acute (2) Cellulitis and abscess of upper arm and forearm Current Visit: Yes Status: Acute (3) IVDU (intravenous drug user) Current Visit: Yes Status: Acute (4) Opiate withdrawal Current Visit: Yes Status: Acute - Summary of Assessment and Plan Summary of Assessment and Plan: Ms. Barrera is a 32 year old female with a past medical history of IV drug use including amphetamines cocaine and opiates who presented day history of swelling, redness and tenderness on the right foot and left wrist. She is on IV antibiotics and had I and D by podiatry today. Right foot abscess: - Immediate post I and D by Podiary - Purulent drainage expressed in sugery with removal of devitalized tissue - Patient remains stable - No OM on MRI - Continue curent antibiotics. - Consult ID Left upper extremity abscess: - s/p I&D in the ER. - Continue IV Vanc and Zosyn Opiate withdrawal: - Zofran for nausea number Imodium for diarrhea, Vistaril for anxiety. Discussed with pharmacist and RN. IV drug abuse: - Patient is interested to go to methadone clinic after discharge - bottle line worker consulted DVT prophylaxis: Not Indicated as the patient is ambulating. - Time Spent with Patient Total time spent is greater than 50% in coordination of care (as documented) at patient's floor/unit and/or counseling patient: Plan of Care Discussed with: patient Internal Medicine: Result - Labs CBC & Chem 7: 09/20/18 07:05 09/20/18 07:05 Labs: Short CBC 09/20/18 Range/Units 07:05 WBC 6.5 (4.3-11.1) K/mcL Hgb 11.1 L (11.5-15.4) g/dL Hct 33.1 L (35.3-44.9) % Plt Count 243 (140-400) K/mcL BMP 09/20/18 07:05 Sodium 141 Potassium 3.9 Chloride 105 Carbon Dioxide 25 BUN 28 H Creatinine 1.26 H Glucose 90 Calcium 8.7 - Impressions Impressions Foot MRI 09/19/18 11:59 IMPRESSION: 1. Shallow soft tissue defect dorsal to the 4th metatarsal with adjacent cellulitis. No drainable fluid collection. 2. No osteomyelitis or other acute osseous abnormality. D/ / Lupillo Cardenas MD / Lupillo Cardenas MD Interpreting Provider: Lupillo Cardenas MD Consult Discharge Plan - Plan Referrals: NONE,PCP [Primary Care Provider] -
[2018-09-21] MEDS: Ondansetron 4 MG/2 ML VIAL IVP SCH ×4 (00:03→18:07)
[2018-09-21] MEDS: Piperacillin/Tazobactam 3.375 GM in 0.9 % Sodium Chloride Mini Bag 100 ML IVPB SCH ×3 (00:03→16:24)
[2018-09-21] MEDS: Ketorolac 15 MG/ML VIAL IVP PRN ×2 (00:09→10:52)
[2018-09-21 05:13] LABS: BUN/Creatinine Ratio 23 (6-26); Blood Urea Nitrogen 25 mg/dL (6-20); Calcium 8.1 mg/dL (8.6-10.3); Carbon Dioxide 24 mEq/L (23-29); Chloride 109 mEq/L (98-107); Glucose 148 mg/dL (70-105); Osmolality,Calculated 293 (280-300); Potassium 4.1 mEq/L (3.5-5.1); Sodium 138 mEq/L (136-145); eGFR For African Americans > 60 (> 60); eGFR For Non-African Americans 58 (> 60)
[2018-09-21] MEDS: Nicotine 14 MG PATCH.TD24 TD SCH (08:39)
--- NOTE | 2018-09-21 11:39 | Infectious Disease Consult ---
Infectious Disease-Consult - Encounter Date/Time Date of Encounter: 09/21/18 Time of Encounter: 11:36 - Data of Consult Patient: new to practice Reason for consult: "IV drug user with foot abscess post I and D. Decision on outpatient oral vs IV therapy. Thanks." Consult date: 09/21/18 Requesting Physician: Ashley Ansari MD Primary Care Provider: PCP NONE - HPI HPI: Ms. Barrera is a 32-year-old female with a past medical history of IV drug use. She was admitted to the hospital 09/17/18 for cellulitis and abscess of the right foot and left wrist. We are consulted 09/21/18 for further workup and treatment recommendations for right foot and left wrist abscess/cellulitis. Briefly, the patient's a 32-year-old female with past medical history as stated above. The patient presented to the emergency department with a five-day history of abscesses at previous IV drug use injection sites. She reported usi ng IV heroin with fentanyl with tap water last Tuesday. She began to have pain the following day with worsening swelling and redness. She states the pain in her right foot became unbearable so she presented to the ER for evaluation. Upon arrival, she was afebrile hemodynamically stable. Her WBC was mildly elevated at 11.5. Renal function was normal. She had an x-ray of the right foot that showed soft tissue swelling, but no osseous abnormality. Blood cultures were obtained 2 sets are no growth. She underwent a bedside I&D of the right foot abscess that yielded purulent drainage. Wound cultures were obtained and came back positive for 2 strains of Klebsiella oxytoca. She also had a bedside I & D of the left wrist and it does not appear cultures were sent. She was given IV fluids, tetanus booster, and IV clindamycin and was admitted to the hospital for further evaluation and treatment. Since admission, the patient's leukocytosis has resolved. She has remained afebrile hemodynamically stable. She did sustain a mild acute kidney injury, which has resolved. She underwent a right foot MRI that showed findings consistent with cellulitis, but no abscess or osteomyelitis. Podiatry evaluated the patient and took her to the operating room 09/20/18 where she underwent an I&D of the right foot abscess. Intraoperative cultures are pending. Currently, she is on IV vancomycin and Zosyn. We have been asked to evaluate and make further recommendations. During my exam today, the patient endorses a history as stated above. She denies fevers, chills, rigors. Denies headache or neck pain. Denies chest pain, shortness of breath, or cough. Denies nausea, vomiting, diarrhea, or constipation. Denies abdominal pain or urinary complaints. Denies oral thrush or skin rashes. States her appetite is good. Reports improved pain at the site of the abscesses. The patient lives at home with her parents. 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 She smokes about half pack cigarettes per day. States she was utilizing IV heroin and fentanyl on a daily basis but plans to quit after discharge. Denies alcohol use. Denies any known chronic infectious diseases, but states that she does share needles regularly. Denies recent travel outside the [facility]. Denies pet or animal exposures. - ROS Review of Systems: All systems reviewed and no additional remarkable complaints except as stated. - Results CBC & Chem 7: 09/20/18 07:05 09/21/18 04:36 - Exam Vitals: Temp Pulse Resp BP Pulse Ox 98.6 F 59 14 130/83 97 09/21/18 08:17 09/21/18 08:17 09/21/18 08:17 09/21/18 08:17 09/21/18 08:17 Exam: Head: Atraumatic, normal inspection, normocephalic. Eye: EOMI, PERRLA, no scleral icterus noted. ENT: Mucous membranes moist. No odontogenic infection noted. Poor dentition noted. Neck: Normal inspection, no meningismus. Respiratory: Clear to auscultation. No rales, respiratory distress, rhonchi, or wheezes noted. Cardiovascular: Regular rate and rhythm, S1 and S2 audible. No murmurs, rubs, or gallops. GI: Soft, nondistended, normal bowel sounds. Extremities: No joint swelling, pedal edema, or tenderness noted. Left wrist abscess s/p I & D with packing intact and no surrounding erythema noted. Right foot post-op dressing C/D/I. Back: Normal inspection. No vertebral tenderness noted. Neurological: Alert, oriented 3, no focal deficits. Psychiatric: normal affect, normal mood. Skin: Dry, intact, warm. Normal color. No rashes. No Known Home Drugs 09/17/18 [History] Allergy/AdvReac Type Severity Reaction Status Date / Time No Known Allergies Allergy Verified 09/17/18 14:36 - Assessment and Plan (1) Leukocytosis Current Visit: Yes Status: Acute WBC elevated at 11.5 thousand on admission. Likely secondary to cellulitis and abscesses. Resolved. Blood cultures drawn 09/17/18 are no growth to date 2 sets. Qualifiers: Leukocytosis type: other Qualified Code(s): D72.828 - Other elevated white blood cell count SNOMED Code(s): 126445764, 703310313 (2) Cellulitis and abscess of foot Current Visit: Yes Status: Acute Location: Right foot. Causative organism: Klebsiella oxytoca 2 strains. Likely secondary to IV drug use. X-ray showed soft tissue swelling consistent with cellulitis, but no acute osseous abnormality. Status post bedside I&D in the emergency department. Cultures as above. Right foot MRI confirmed the diagnosis of cellulitis and was negative for abcess or osteomyelitis. Podiatry consult. Status post I&D of the right foot abscess 09/20/[address] Griffith. Operative note reviewed. Intraoperative cultures are pending. Currently on IV vancomycin and Zosyn. SNOMED Code(s): 237541713, 988045248 (3) Cellulitis and abscess of upper arm and forearm Current Visit: Yes Status: Acute Location: Right wrist. Causative organism: Unclear. Likely secondary to IV drug use. Improved per patient report. Appears very superficial. Currently on vancomycin and Zosyn. SNOMED Code(s): 043526679 (4) Acute kidney injury Current Visit: Yes Status: Acute Likely multifactorial: Poor by mouth intake and vancomycin. Resolved. Continue to trend. Dose adjust antibiotics and avoid nephrotoxins as able. SNOMED Code(s): 27216616, 05625111 (5) Opiate withdrawal Current Visit: Yes Status: Acute Management per the primary team. SNOMED Code(s): 45724274 (6) IVDU (intravenous drug user) Current Visit: Yes Status: Acute Reports regular use of IV amphetamines, cocaine, and heroin. Check hepatitis B and C serologies and HIV status. SNOMED Code(s): 476139221 - Recommendations Recommendations: Await intraoperative cultures. Check HIV and hepatitis B and C serologies. Wound care per the podiatry team. Withdrawal management per the primary team. Continue Vancomycin IV. Pharmacy to dose. Goal trough ~15. Continue Zosyn 3.375 grams IV Q8H. Duration of treatment depends on the clinical picture. Will discuss with Podiatry to see if they feel IV vs. PO antibiotics warranted. Monitor renal function and for drug toxicity and dose-adjust antibiotics. Past Med Surg Social Fam HX - Past Medical History Attestation: Yes The following information was validated with the patient. Source: patient, old records reviewed, nursing notes reviewed Medical history: no medical history Psychiatric history: no psych history - Past Surgical History Surgical History: appendectomy, Additional surgical history: tonsilectomy - Social History Smoking Status: Current every day smoker Packs per day: 1/2 Smokeless Tobacco Status: No Alcohol use: none Drug use: opiates (last used IV fentanyl 09/15/2018), methamphetamine, IV Drug Use (last used heroin 09/16) Occupational status: unemployed Current living situation: Home - Independent Activity Level: Independent ambulation Recent Out of Country Travel Within the Last 8 Weeks: No Exposure or Possible Exposure to Illness During Travel: No Consult Discharge Plan - Plan Additional Instructions: Follow up in wound care 1 weeks s/p discharge Home care to change dressing daily Pack wound with 1/4 inch iodaform gauze, cover sutures with adaptic, 4x4 dry gauze, and kerlix. Secure with JENNIFER bandage Heel weight bearing, use surgical shoe when ambulating Referrals: NONE,PCP [Primary Care Provider] - - Attending Attestation I have personally performed a face to face evaluation on this patient. I have reviewed and agree with the care plan. History and Exam by me shows: Assessment and plan: 1.IV drug use 2.Abscess of the foot status post I&D Intra-Op cultures pending 3.Abscess of the right upper arm status post I&D in the ED 4.Acute kidney injury Recommendations Await intraoperative cultures. Check HIV and hepatitis B and C serologies. Wound care per the podiatry team. Withdrawal management per the primary team. Continue Vancomycin IV. Pharmacy to dose. Goal trough ~15. Continue Zosyn 3.375 grams IV Q8H. Duration of treatment depends on the clinical picture. Will discuss with Podiatry to see if they feel IV vs. PO antibiotics warranted. Monitor renal function and for drug toxicity and dose-adjust antibiotics.
--- NOTE | 2018-09-21 12:15 | Podiatry Progress Note ---
Date of Encounter: 09/21/18 Time of Encounter: 11:20 - Assessment and Plan (1) Cellulitis and abscess of foot Current Visit: Yes Status: Acute Assessment: S/P Incision and drainage right foot abscess with Dr. Pretty on 09/20/18 WBC 6.5 yesterday, no labs today, afebrile Wound cultures returned klebsiella oxytoca, blood cultures pending, intra-op cultures pending Minimal erythema and edmea ntoed XR negative for osseus abnormality Currently on zosyn and vancomycin Plan: Dressing changed, see below Awaiting intra-op cultures ID consulted for ATB therapy Will need social service consult for dressing changes, will need home health Cleansed foot with 0.9 NS, packed with 1/4 inch iodaform gauze, covered with adpatic, 4x4 dry gauze, kerlix, and medipore Subjective Interval history: Patient awake in bed. Alert and oriented x 3. Denies any fevers, chills, nausea, vomiting, or diarrhea. Denies any calf pain, chest pain, or shortness of breath. Reports pain to right foot. Requesting increase in pain medication. No other questions or concerns at this time. Objective - Vital Signs Vital Signs: Vital Signs Temp Pulse Resp BP Pulse Ox 09/21/18 08:17 98.6 F 59 14 130/83 97 09/21/18 03:21 97.9 F 45 14 112/72 97 09/20/18 19:53 98.3 F 74 16 144/73 97 09/20/18 17:38 98.6 F 75 18 117/76 97 09/20/18 16:40 99.3 F 73 16 138/73 97 09/20/18 15:30 98.1 F 64 16 131/80 97 09/20/18 15:00 98.2 F 60 16 120/81 97 09/20/18 14:42 98.2 F 60 16 121/78 98 09/20/18 14:12 98.4 F 59 19 122/82 98 09/20/18 14:02 58 24 125/76 99 09/20/18 13:52 59 18 119/79 99 09/20/18 13:42 97.0 F L 58 16 112/74 100 Intake and Output 07/17/19 07/18/19 07/18/19 23:59 07:59 15:59 Intake Total 1250 / 2700 1100 / 1460 360 / 1460 Balance 1250 / 2690 1100 / 1460 360 / 1460 Intake: IV Fluids 1250 / 2700 1100 / 1100 0.9 % Sodium Chloride 1,000 ML 900 / 900 1000 / 1000 @ 125 mls/hr IVC .Q8H [facility] Rx#: [id number] Zosyn 3.375 GM In 0.9 % Sodium 100 / 100 100 / 100 Chloride (Mini-Bag +) 100 ML @ 25 mls/hr IVPB Q8HR [facility] Rx#: [id number] Vancocin 1,000 MG In 0.9 % 250 / 250 Sodium Chloride 250 ML @ 167 mls/hr IVPB Q12H [facility] Rx#: [id number] Oral 0 / 0 0 / 360 360 / 360 Other: Meal Breakfast Percent of Meal Consumed 100% # Voids 1 1 - Exam Exam: Constitiutional: Alert and oriented x 3. Well nourished. No acute distress noted Vascular: 3/4 DP/PT RLE CFT <3 sec to all digits RLE, warm to warm from tibia to toes RLE, no calf pain with squeeze RLE Neurologic: Sensation to touch, normal plantar response Dermatologic: Incision noted to right foot with opening to medial aspect of incision, packing noted, Erythema and edema noted to right foot, improved from previous, no drainage noted, Musculoskeletal: 5/5 muscle strength and normal tone RLE - Lab Result Diagrams: 09/20/18 07:05 09/21/18 04:36 Labs: Abnormal lab results WBC 11.5 K/mcL (4.3-11.1) H 09/17/18 08:19 RBC 3.37 M/mcL (3.82-4.97) L 09/20/18 07:05 Hgb 11.1 g/dL (11.5-15.4) L 09/20/18 07:05 Hct 33.1 % (35.3-44.9) L 09/20/18 07:05 MCV 100.3 fL (83.0-100.0) H 09/17/18 08:19 MCH 33.4 pg (28.0-33.3) H 09/19/18 06:51 Reactive Lymphocytes Present (Not Present) A 09/17/18 08:19 Chloride 109 mEq/L (98-107) H 09/21/18 04:36 BUN 25 mg/dL (6-20) H 09/21/18 04:36 Creatinine 1.26 mg/dL (0.60-1.20) H 09/20/18 07:05 Est GFR (Non-Af Amer) 58 (> 60) L 09/21/18 04:36 Glucose 148 mg/dL (70-105) H 09/21/18 04:36 POC Glucose 127 mg/dL (70-99) H 09/20/18 05:11 Calcium 8.1 mg/dL (8.6-10.3) L 09/21/18 04:36 Nasal Screen MRSA (PCR) Positive (Negative) A 09/17/18 14:25 Vancomycin Trough 15 mcg/mL (5-10) H 09/20/18 21:29 Microbiology, Last 48 Hours 09/20/18 13:49 Wound Culture - Preliminary Right Foot Culture is incubating. 09/20/18 13:49 Anaerobic Culture - Preliminary Right Foot Culture is incubating. 09/17/18 09:10 Wound Culture - Final Right Foot Klebsiella oxytoca Klebsiella oxytoca#2 Consult Discharge Plan - Plan Referrals: NONE,PCP [Primary Care Provider] -
[2018-09-21 13:18] LABS: Hepatitis B Surface Antibody < 3.10 mIU/mL
[2018-09-21 13:30] LABS: Hepatitis B Surface Antigen Nonreactive (Nonreactive)
[2018-09-21 14:01] LABS: HIV-1&2 Antibody & p24 Ag Nonreactive (Nonreactive)
[2018-09-21] MEDS: *HR* OxyCODONE/APAP 7.5/325 TABLET PO PRN ×2 (15:02→22:17)
[2018-09-21 16:09] LABS: Hepatitis C Virus Antibody Reactive (Nonreactive)
--- NOTE | 2018-09-21 18:13 | Internal Med Progress Note ---
Hospitalist Progress Note - Encounter Date of Encounter: 09/21/18 Time of Encounter: 10:00 - Subjective Interval History: Patient not in distress. She does complain of some soreness in her right foot. Denies fever chills and withdrawal symptoms - Exam Vitals: Temp Pulse Resp BP Pulse Ox 37.1 C 67 16 117/75 97 09/21/18 15:52 09/21/18 15:52 09/21/18 15:52 09/21/18 15:52 09/21/18 15:52 Exam: GENERAL: Not in distress. Alert and Oriented HEENT: EOMI, PERRLA MOUTH: Good oral hygiene NECK:No JVD, No lymph nodes. CHEST AND LUNGS: Normal breath sounds, no wheezes or crackles HEART: S1 and S2 normal, no murmurs ABDOMEN: Soft, nontender, no organomegaly EXTREMITIES: Clean dessing over left arm, Circular well defined wound on dorsum of foot packed with gauze and mild purulent discharge. NEUROLOGICAL: Normal cognition, normal motor and sensory exam. . - Assessment and Plan (1) Cellulitis and abscess of foot Current Visit: Yes Status: Acute (2) Cellulitis and abscess of upper arm and forearm Current Visit: Yes Status: Acute (3) IVDU (intravenous drug user) Current Visit: Yes Status: Acute (4) Opiate withdrawal Current Visit: Yes Status: Acute - Summary of Assessment and Plan Summary of Assessment and Plan: Ms. Barrera is a 32 year old female with a past medical history of IV drug use including amphetamines cocaine and opiates who presented day history of swelling, redness and tenderness on the right foot and left wrist. She is on IV antibiotics and had I and D by podiatry today. Right foot abscess: - Postop day 1 of I and D by Podiary - Awaiting culture results to determine antibiotic choice for discharge - Continue vancomycin and Zosyn Left upper extremity abscess: - s/p I&D in the ER. - Continue IV Vanc and Zosyn Opiate withdrawal: - Zofran for nausea number Imodium for diarrhea, Vistaril for anxiety. Discussed with pharmacist and RN. 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 - Time Spent with Patient Total time spent is greater than 50% in coordination of care (as documented) at patient's floor/unit and/or counseling patient: Internal Medicine: Result - Labs CBC & Chem 7: 09/20/18 07:05 09/21/18 04:36 Labs: BMP 09/21/18 04:36 Sodium 138 Potassium 4.1 Chloride 109 H Carbon Dioxide 24 BUN 25 H Creatinine 1.10 Glucose 148 H Calcium 8.1 L Consult Discharge Plan - Plan Referrals: NONE,PCP [Primary Care Provider] -
[2018-09-22] MEDS: Piperacillin/Tazobactam 3.375 GM in 0.9 % Sodium Chloride Mini Bag 100 ML IVPB SCH ×4 (00:14→23:43)
[2018-09-22] MEDS: Ondansetron 4 MG/2 ML VIAL IVP SCH ×3 (06:00→22:40)
[2018-09-22] MEDS: Nicotine 14 MG PATCH.TD24 TD SCH (08:37)
[2018-09-22] MEDS: *HR* OxyCODONE/APAP 7.5/325 TABLET PO PRN (08:41)
--- NOTE | 2018-09-22 10:54 | Infectious Disease Progress No ---
ID Progress Note Date of Encounter: 09/22/18 Time of Encounter: 09:55 - Subjective Subjective: He should seen and examined. No acute events overnight. Patient states overall she feels well and wants to go home. Denies fevers, chills, or rigors. Denies chest pain, shortness of breath, or cough. Denies nausea, vomiting, diarrhea, constipation. States her last bowel movement was yesterday. Denies abdominal pain or urinary complaints. Denies oral thrush or skin rashes. Denies pain at the surgical site. - Objective CBC & Chem 7: 09/20/18 07:05 09/21/18 04:36 - Exam Vitals: Temp Pulse Resp BP Pulse Ox 98.2 F 72 14 130/85 97 09/22/18 06:52 09/22/18 06:52 09/22/18 06:52 09/22/18 06:52 09/22/18 06:52 Exam: Head: Atraumatic, normal inspection, normocephalic. Eye: EOMI, PERRLA, no scleral icterus noted. ENT: Mucous membranes moist. No odontogenic infection noted. Poor dentition noted. Neck: Normal inspection, no meningismus. Respiratory: Clear to auscultation. No rales, respiratory distress, rhonchi, or wheezes noted. Cardiovascular: Regular rate and rhythm, S1 and S2 audible. No murmurs, rubs, or gallops. GI: Soft, nondistended, normal bowel sounds. Extremities: No joint swelling, pedal edema, or tenderness noted. Left wrist dressing C/D/I. Right foot post-op dressing C/D/I. + M/S. Back: Normal inspection. No vertebral tenderness noted. Neurological: Alert, oriented 3, no focal deficits. Psychiatric: normal affect, normal mood. Skin: Dry, intact, warm. Normal color. No rashes. - Assessment and Plan (1) Leukocytosis Current Visit: Yes Status: Acute WBC elevated at 11.5 thousand on admission. Likely secondary to cellulitis and abscesses. Resolved. Blood cultures drawn 09/17/18 are no growth to date 2 sets. Qualifiers: Leukocytosis type: other Qualified Code(s): D72.828 - Other elevated white blood cell count SNOMED Code(s): 673216486, 063411380 (2) Cellulitis and abscess of foot Current Visit: Yes Status: Acute Location: Right foot. Causative organism: Klebsiella oxytoca 2 strains. Likely secondary to IV drug use. X-ray showed soft tissue swelling consistent with cellulitis, but no acute osseous abnormality. Status post bedside I&D in the emergency department. Cultures as above. Right foot MRI confirmed the diagnosis of cellulitis and was negative for abcess or osteomyelitis. Podiatry consult. Status post I&D of the right foot abscess 09/20/[address] Griffith. Operative note reviewed. Intraoperative cultures are pending. Currently on IV vancomycin and Zosyn. SNOMED Code(s): 884758886, 363344528 (3) Cellulitis and abscess of upper arm and forearm Current Visit: Yes Status: Acute Location: Right wrist. Causative organism: Unclear. Likely secondary to IV drug use. Improved per patient report. Appears very superficial. Currently on vancomycin and Zosyn. SNOMED Code(s): 808971949 (4) Acute kidney injury Current Visit: Yes Status: Acute Likely multifactorial: Poor by mouth intake and vancomycin. Resolved. Continue to trend. Dose adjust antibiotics and avoid nephrotoxins as able. SNOMED Code(s): 58432277, 17028913 (5) Opiate withdrawal Current Visit: Yes Status: Acute Management per the primary team. SNOMED Code(s): 75799718 (6) IVDU (intravenous drug user) Current Visit: Yes Status: Acute Reports regular use of IV amphetamines, cocaine, and heroin. Hepatitis C positive. HIV non-reactive. Hep B non-immune. Recommend Hep B series. SNOMED Code(s): 476820710 (7) Hepatitis C antibody positive in blood Current Visit: Yes Status: Acute Outpatient GI referral. SNOMED Code(s): 493125350 - Recommendations Recommendations: Await intraoperative cultures. Wound care per the podiatry team. Withdrawal management per the primary team. Continue Vancomycin IV. Pharmacy to dose. Goal trough ~15. Continue Zosyn 3.375 grams IV Q8H. Duration of treatment depends on the clinical picture. Can likely transition to PO antibiotics when ready for discharge. Monitor renal function and for drug toxicity and dose-adjust antibiotics. Consult Discharge Plan - Plan Additional Instructions: Follow up in wound care 1 weeks s/p discharge Home care to change dressing daily Pack wound with 1/4 inch iodaform gauze, cover sutures with adaptic, 4x4 dry gauze, and kerlix. Secure with JENNIFER bandage Heel weight bearing, use surgical shoe when ambulating Referrals: NONE,PCP [Primary Care Provider] - - Attending Attestation I have personally performed a face to face evaluation on this patient. I have reviewed and agree with the care plan. History and Exam by me shows: Assessment and plan: 1.IV drug use 2.Abscess of the foot status post I&D Intra-Op cultures pending 3.Abscess of the right upper arm status post I&D in the ED 4.Acute kidney injury 5.Hepatitis C Recommendations Await intraoperative cultures. Wound care per the podiatry team. Withdrawal management per the primary team. Continue Vancomycin IV. Pharmacy to dose. Goal trough ~15. Continue Zosyn 3.375 grams IV Q8H. Duration of treatment depends on the clinical picture. Can likely transition to PO antibiotics when ready for discharge. Monitor renal function and for drug toxicity and dose-adjust antibiotics.
--- NOTE | 2018-09-22 11:35 | Podiatry Progress Note ---
Date of Encounter: 09/22/18 Time of Encounter: 11:32 - Assessment and Plan (1) Cellulitis and abscess of foot Current Visit: Yes Status: Acute Assessment: S/P Incision and drainage right foot abscess with Dr. Pretty on 09/20/18 WBC 6.5 /, no labs today, afebrile Wound cultures returned klebsiella oxytoca, blood cultures pending, intra-op cultures pending Minimal erythema and edema noted XR negative for osseus abnormality Currently on zosyn and vancomycin Plan: Dressing changed, see below Intra-op cultures pending, can most likely go on PO ATB ID consulted for ATB therapy- appreciate recommendations Surgical shoe ordered, heel weight bearing when ambulating Social service for home care placement Follow up in wound care 1 week s/p discharge, please make appointment prior to d/c Cleansed foot with 0.9 NS, packed with 1/4 inch iodaform gauze, covered with adpatic, 4x4 dry gauze, kerlix, and JENNIFER bandage Subjective Principal diagnosis: Abscess Interval history: Patient awake in bed. Alert and oriented x 3. Denies any fevers, chills, nausea, vomiting, or diarrhea. Denies any calf pain, chest pain, or shortness of breath. Reports pain to right foot, improved with pain medication. States she is going home today or tomorrow. No other questions or concerns at this time. Objective - Vital Signs Vital Signs: Vital Signs Temp Pulse Resp BP Pulse Ox 09/22/18 10:59 98.5 F 58 14 122/82 97 09/22/18 06:52 98.2 F 72 14 130/85 97 09/22/18 02:54 98.1 F 61 14 132/87 97 09/21/18 19:57 98.2 F 70 14 122/75 97 09/21/18 15:52 98.7 F 67 16 117/75 97 09/21/18 12:05 98.0 F 67 14 127/73 95 Intake and Output 09/21/18 09/22/18 09/22/18 23:59 07:59 15:59 Intake Total 960 / 2640 100 / 220 120 / 220 Balance 960 / 2640 100 / 220 120 / 220 Intake: IV Fluids 600 / 1800 100 / 100 Zosyn 3.375 GM In 0.9 % Sodium 100 / 300 100 / 100 Chloride (Mini-Bag +) 100 ML @ 25 mls/hr IVPB Q8HR [facility] Rx#: [id number] Vancocin 1,000 MG In 0.9 % 500 / 500 Sodium Chloride 250 ML @ 167 mls/hr IVPB Q12H [facility] Rx#: [id number] Oral 360 / 840 0 / 120 120 / 120 Other: Meal Dinner Breakfast Percent of Meal Consumed 100% 20% # Voids 1 1 2 Weight 73 kg Patient Weight 09/22/18 23:59 Weight 73 kg - Exam Exam: Constitiutional: Alert and oriented x 3. Well nourished. No acute distress noted Vascular: 3/4 DP/PT RLE CFT <3 sec to all digits RLE, warm to warm from tibia to toes RLE, no calf pain with squeeze RLE Neurologic: Sensation to touch, normal plantar response Dermatologic: Incision noted to right foot with opening to medial aspect of incision, packing noted, minimal erythema and edema noted to right foot, no drainage noted, no lymphangitis noted Musculoskeletal: 5/5 muscle strength and normal tone RLE - Lab Result Diagrams: 09/20/18 07:05 09/21/18 04:36 Labs: Abnormal lab results WBC 11.5 K/mcL (4.3-11.1) H 09/17/18 08:19 RBC 3.37 M/mcL (3.82-4.97) L 09/20/18 07:05 Hgb 11.1 g/dL (11.5-15.4) L 09/20/18 07:05 Hct 33.1 % (35.3-44.9) L 09/20/18 07:05 MCV 100.3 fL (83.0-100.0) H 09/17/18 08:19 MCH 33.4 pg (28.0-33.3) H 09/19/18 06:51 Reactive Lymphocytes Present (Not Present) A 09/17/18 08:19 Chloride 109 mEq/L (98-107) H 09/21/18 04:36 BUN 25 mg/dL (6-20) H 09/21/18 04:36 Creatinine 1.26 mg/dL (0.60-1.20) H 09/20/18 07:05 Est GFR (Non-Af Amer) 58 (> 60) L 09/21/18 04:36 Glucose 148 mg/dL (70-105) H 09/21/18 04:36 POC Glucose 127 mg/dL (70-99) H 09/20/18 05:11 Calcium 8.1 mg/dL (8.6-10.3) L 09/21/18 04:36 Nasal Screen MRSA (PCR) Positive (Negative) A 09/17/18 14:25 Vancomycin Trough 15 mcg/mL (5-10) H 09/20/18 21:29 Hep Bs Antibody < 3.10 mIU/mL (10.00-) L 09/21/18 12:22 Hepatitis C Ab Screen Reactive (Nonreactive) H 09/21/18 12:22 Microbiology, Last 48 Hours 09/20/18 13:49 Wound Culture - Preliminary Right Foot Culture is incubating. 09/20/18 13:49 Anaerobic Culture - Preliminary Right Foot Culture is incubating. 09/17/18 09:10 Wound Culture - Final Right Foot Klebsiella oxytoca Klebsiella oxytoca#2 Consult Discharge Plan - Plan Additional Instructions: Follow up in wound care 1 weeks s/p discharge Home care to change dressing daily Pack wound with 1/4 inch iodaform gauze, cover sutures with adaptic, 4x4 dry gauze, and kerlix. Secure with JENNIFER bandage Heel weight bearing, use surgical shoe when ambulating Referrals: NONE,PCP [Primary Care Provider] -
--- NOTE | 2018-09-22 12:16 | Internal Med Progress Note ---
Hospitalist Progress Note - Encounter Date of Encounter: 09/22/18 Time of Encounter: 09:15 - Subjective Interval History: No acute events overnight. Patient lying comfortably in bed. She denies pain in her right foot, fever, chills, chest pain and shortness of breath. - Exam Vitals: Temp Pulse Resp BP Pulse Ox 36.9 C 58 14 122/82 97 09/22/18 10:59 09/22/18 10:59 09/22/18 10:59 09/22/18 10:59 09/22/18 10:59 Exam: GENERAL: Not in distress. Alert and Oriented HEENT: EOMI, PERRLA MOUTH: Good oral hygiene NECK:No JVD, No lymph nodes. CHEST AND LUNGS: Normal breath sounds, no wheezes or crackles HEART: S1 and S2 normal, no murmurs ABDOMEN: Soft, nontender, no organomegaly EXTREMITIES: Clean surgical dressing on right foot. NEUROLOGICAL: Normal cognition, normal motor and sensory exam. . - Assessment and Plan (1) Cellulitis and abscess of foot Current Visit: Yes Status: Acute (2) Cellulitis and abscess of upper arm and forearm Current Visit: Yes Status: Acute (3) IVDU (intravenous drug user) Current Visit: Yes Status: Acute (4) Opiate withdrawal Current Visit: Yes Status: Acute - Summary of Assessment and Plan Summary of Assessment and Plan: Ms. Barrera is a 32 year old female with a past medical history of IV drug use including amphetamines cocaine and opiates who presented day history of swelling, redness and tenderness on the right foot and left wrist. She is on IV antibiotics and is postop day 2 of I&D by podiatry. Currently awaiting intraoperative culture results. Right foot abscess: - Postop day 2 of I and D by Podiary - Awaiting culture results to determine antibiotic choice for discharge - Continue vancomycin and Zosyn Left upper extremity abscess: - s/p I&D in the ER. - Continue IV Vanc and Zosyn Opiate withdrawal: - Zofran for nausea number Imodium for diarrhea, Vistaril for anxiety. Discussed with pharmacist and RN. 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 - Time Spent with Patient Total time spent is greater than 50% in coordination of care (as documented) at patient's floor/unit and/or counseling patient: less than 15 minutes Plan of Care Discussed with: patient Internal Medicine: Result - Labs CBC & Chem 7: 09/20/18 07:05 09/21/18 04:36 Consult Discharge Plan - Plan Additional Instructions: Follow up in wound care 1 weeks s/p discharge Home care to change dressing daily Pack wound with 1/4 inch iodaform gauze, cover sutures with adaptic, 4x4 dry gauze, and kerlix. Secure with JENNIFER bandage Heel weight bearing, use surgical shoe when ambulating Referrals: NONE,PCP [Primary Care Provider] -
[2018-09-22] MEDS ORDERED: Ondansetron 4 MG/2 ML VIAL IVP PRN (12:43)
[2018-09-22] MEDS: Ibuprofen 600 MG TABLET PO PRN ×2 (15:17→22:17)
[2018-09-22] MEDS: hydrOXYzine pamoate 25 MG CAPSULE PO PRN ×2 (15:18→22:18)
[2018-09-23 02:22] LABS: Hematocrit 34.1 % (35.3-44.9); Hemoglobin 11.4 g/dL (11.5-15.4); Mean Corpuscular HGB Conc 33.4 g/dL (31.6-35.5); Mean Corpuscular Volume 98.8 fL (83.0-100.0); Mean Platelet Volume 9.7 fL (9.4-12.4); Platelet Count 254 K/mcL (140-400); Red Blood Count 3.45 M/mcL (3.82-4.97); Red Cell Distribution Width 11.8 % (11.5-14.5); White Blood Count 8.5 K/mcL (4.3-11.1)
[2018-09-23 02:34] LABS: BUN/Creatinine Ratio 23 (6-26); Blood Urea Nitrogen 25 mg/dL (6-20); Calcium 8.1 mg/dL (8.6-10.3); Carbon Dioxide 23 mEq/L (23-29); Chloride 108 mEq/L (98-107); Glucose 119 mg/dL (70-105); Osmolality,Calculated 292 (280-300); Potassium 3.5 mEq/L (3.5-5.1); Sodium 138 mEq/L (136-145); eGFR For African Americans > 60 (> 60); eGFR For Non-African Americans 58 (> 60)
[2018-09-23] MEDS: Piperacillin/Tazobactam 3.375 GM in 0.9 % Sodium Chloride Mini Bag 100 ML IVPB SCH ×2 (08:46→16:27)
[2018-09-23] MEDS: Ibuprofen 600 MG TABLET PO PRN (08:48)
[2018-09-23] MEDS: Nicotine 14 MG PATCH.TD24 TD SCH (08:49)
--- NOTE | 2018-09-23 09:48 | Internal Med Progress Note ---
Hospitalist Progress Note - Encounter Date of Encounter: 09/23/18 Time of Encounter: 09:48 - Subjective Interval History: No acute events. Patient has no new complaints. - Exam Vitals: Temp Pulse Resp BP Pulse Ox 36.7 C 61 16 116/79 99 09/23/18 06:57 09/23/18 06:57 09/23/18 06:57 09/23/18 06:57 09/23/18 06:57 Exam: GENERAL: Not in distress. Alert and Oriented HEENT: EOMI, PERRLA MOUTH: Good oral hygiene NECK:No JVD, No lymph nodes. CHEST AND LUNGS: Normal breath sounds, no wheezes or crackles HEART: S1 and S2 normal, no murmurs ABDOMEN: Soft, nontender, no organomegaly EXTREMITIES: Clean surgical dressing on right foot. Left wrist wound examined. No purulent discharged observed. it is packed with iodine soaked gauze. NEUROLOGICAL: Normal cognition, normal motor and sensory exam. . - Assessment and Plan (1) Cellulitis and abscess of foot Current Visit: Yes Status: Acute (2) Cellulitis and abscess of upper arm and forearm Current Visit: Yes Status: Acute (3) IVDU (intravenous drug user) Current Visit: Yes Status: Acute (4) Opiate withdrawal Current Visit: Yes Status: Acute - Summary of Assessment and Plan Summary of Assessment and Plan: Ms. Barrera is a 32 year old female with a past medical history of IV drug use including amphetamines cocaine and opiates who presented day history of swelling, redness and tenderness on the right foot and left wrist. She is on IV antibiotics and is postop day 3 of I&D by podiatry. Currently awaiting intraoperative culture results to help with outpatient antibiotic choice. Right foot abscess: - Postop day 3 of I and D by Podiary - Awaiting culture results to determine antibiotic choice for discharge - Continue vancomycin and Zosyn - Renal function is stable Left upper extremity abscess: - s/p I&D in the ER. - Wound examined. No opurulent discharge observed. - Continue IV Vanc and Zosyn Opiate withdrawal: - Zofran for nausea number Imodium for diarrhea, Vistaril for anxiety. Discussed with pharmacist and RN. 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 Internal Medicine: Result - Labs CBC & Chem 7: 09/23/18 01:39 09/23/18 01:39 Labs: Short CBC 09/23/18 Range/Units 01:39 WBC 8.5 (4.3-11.1) K/mcL Hgb 11.4 L (11.5-15.4) g/dL Hct 34.1 L (35.3-44.9) % Plt Count 254 (140-400) K/mcL BMP 09/23/18 01:39 Sodium 138 Potassium 3.5 Chloride 108 H Carbon Dioxide 23 BUN 25 H Creatinine 1.10 Glucose 119 H Calcium 8.1 L Consult Discharge Plan - Plan Additional Instructions: Follow up in wound care 1 weeks s/p discharge Home care to change dressing daily Pack wound with 1/4 inch iodaform gauze, cover sutures with adaptic, 4x4 dry gauze, and kerlix. Secure with JENNIFER bandage Heel weight bearing, use surgical shoe when ambulating Referrals: NONE,PCP [Primary Care Provider] -
[2018-09-23] MEDS ORDERED: Aminoglycoside Consult 1 EACH MC ONE (11:44)
[2018-09-23] MEDS: hydrOXYzine pamoate 25 MG CAPSULE PO PRN (16:27)
[2018-09-24] MEDS: Piperacillin/Tazobactam 3.375 GM in 0.9 % Sodium Chloride Mini Bag 100 ML IVPB SCH ×2 (00:45→09:35)
[2018-09-24 06:05] LABS: Hematocrit 35.1 % (35.3-44.9); Hemoglobin 11.9 g/dL (11.5-15.4); Mean Corpuscular HGB Conc 33.9 g/dL (31.6-35.5); Mean Corpuscular Hemoglobin 33.8 pg (28.0-33.3); Mean Corpuscular Volume 99.7 fL (83.0-100.0); Mean Platelet Volume 9.6 fL (9.4-12.4); Platelet Count 250 K/mcL (140-400); Red Blood Count 3.52 M/mcL (3.82-4.97); White Blood Count 8.3 K/mcL (4.3-11.1)
[2018-09-24 06:24] LABS: BUN/Creatinine Ratio 23 (6-26); Blood Urea Nitrogen 27 mg/dL (6-20); Calcium 8.3 mg/dL (8.6-10.3); Carbon Dioxide 25 mEq/L (23-29); Chloride 110 mEq/L (98-107); Glucose 102 mg/dL (70-105); Osmolality,Calculated 293 (280-300); Potassium 3.8 mEq/L (3.5-5.1); Sodium 139 mEq/L (136-145); eGFR For African Americans > 60 (> 60); eGFR For Non-African Americans 54 (> 60)
[2018-09-24] MEDS: Nicotine 14 MG PATCH.TD24 TD SCH (09:35)
[2018-09-24] MEDS: Ibuprofen 600 MG TABLET PO PRN (10:23)
[2018-09-24 10:32] VITALS: BP 114/75
--- NOTE | 2018-09-24 11:04 | Discharge Summary ---
- NOTES TO OUTPATIENT PROVIDER Notes to Outpatient Provider: To call and schedule follow up with podiatry Orders not resulted at time of discharge: Pending orders 09/20/18 13:49 Culture,Anaerobic [RM] Routine 09/22/18 15:00 Culture,Anaerobic [RM] Stat Culture,Wound [RM] Stat 09/25/18 04:00 BMP [Basic Metabolic Panel] AM 0400 CBC no Diff [Complete Blood Count w/o Diff] [HEME] AM 0400 Date of Encounter: 09/24/18 Time of Encounter: 11:02 - Discharge Diagnosis (1) Cellulitis and abscess of foot Priority: Primary Status: Acute Assessment and Plan: Patient had I&D done by surgery Cultures growing Enterococcus faecalis and Streptococcus gordonii With sensitivity to linezolid, ampicillin and vancomycin We will discharge on Augmentin and Bactrim Follow-up with podiatry (2) Cellulitis and abscess of upper arm and forearm Priority: Secondary Status: Acute Assessment and Plan: Post I&D in the ER Wound looks clean. No drainage observed Continue dressing (3) IVDU (intravenous drug user) Priority: Secondary Status: Acute Assessment and Plan: Patient will like to be set up for an outpatient rehabilitation program. Social workers and case workers on board (4) Opiate withdrawal Priority: Secondary Status: Acute Hospital course: Ms. Barrera is a 32 year old female with a history of substance use disorder. Came in with right foot and left wrist infection. Abscesses were diagnosed in both areas for which I and D was performed. She received 5 days of vancomycin in the hospital. Will be discharged on Augmentin and Bactrim for 9 more days. - Time Spent with Patient Total time spent providing and/or coordinating discharge services: - Discharge Medications Prescriptions: New Amoxicillin/Clavulanate [Augmentin] 875 mg PO BIDWM 9 Days #18 tablet Sulfamethoxazole/Trimeth DS [Bactrim Ds] 1 each PO BID 9 Days #18 tablet Ibuprofen [Motrin] 600 mg PO Q6HR PRN 5 Days #20 tablet PRN Reason: pain not relieved by Tylenol Home Medications: Amoxicillin/Clavulanate [Augmentin] 875 mg PO BIDWM 9 Days #18 tablet 09/24/18 [Rx] Ibuprofen [Motrin] 600 mg PO Q6HR PRN 5 Days #20 tablet 09/24/18 [Rx] Sulfamethoxazole/Trimeth DS [Bactrim Ds] 1 each PO BID 9 Days #18 tablet 09/24/18 [Rx] Allergies/Adverse Reactions: Allergy/AdvReac Type Severity Reaction Status Date / Time No Known Allergies Allergy Verified 09/17/18 14:36 Date of admission: 09/20/18 16:16 Primary care physician: PCP NONE Consults: 09/17/18 09:24 Consult to Podiatry [CONS] Stat Consulting Provider: Pod[facility] Reason for Consult: right foot cellulitis Time Notified: 09:25 Call Completed: Yes 09/17/18 09:46 Consult to Rig Manager [CONS] Routine Reason for SW Consult: drug rehab 09/20/18 16:33 Consult to Infectious Diseases [CONS] Routine Consulting Provider: Infectious Disease [place] Reason for Consult: IV drug user with foot abscess post I and D. Decision on outpatient oral vs IV therapy. Thanks. Time Notified: 16:34 Call Completed: Yes - Constitutional Vitals: Temp Pulse Resp BP Pulse Ox 36.7 C 75 15 114/75 98 09/24/18 10:30 09/24/18 10:30 09/24/18 10:30 09/24/18 10:30 09/24/18 10:30 Exam: GENERAL: Not in distress. Alert and Oriented HEENT: EOMI, PERRLA MOUTH: Good oral hygiene NECK:No JVD, No lymph nodes. CHEST AND LUNGS: Normal breath sounds, no wheezes or crackles HEART: S1 and S2 normal, no murmurs ABDOMEN: Soft, nontender, no organomegaly EXTREMITIES: Clean surgical dressing on right foot. Left wrist wound examined. No purulent discharged observed. it is packed with iodine soaked gauze. NEUROLOGICAL: Normal cognition, normal motor and sensory exam. . - Patient Status Disposition: Home, Self-Care Condition: Good Functional capacity at discharge: uses cane/walker Overall status at discharge: patient is progressing back to baseline - Discharge Instructions Follow Up With: NONE,PCP [Primary Care Provider] - Noe Deleon DPM [Partnered Physician] - Additional Instructions: Follow up in wound care 1 weeks s/p discharge Home care to change dressing daily Pack wound with 1/4 inch iodaform gauze, cover sutures with adaptic, 4x4 dry gauze, and kerlix. Secure with JENNIFER bandage Heel weight bearing, use surgical shoe when ambulating - Diet and Activity Activity: as per physical therapy Diet: advance to your usual diet
[2018-09-24] MEDS ORDERED: Sulfamethoxazole/Trimeth DS 1 EACH TABLET PO SCH (21:00)
== END 2018-09-24 11:45 | disposition home health service (06) | DRG 364 ==
LOC: 3ANU 07:26 → EMEROOARM 07:26 → SUATTDRO 11:09 → 3ANU 12:04
PROVIDERS: ADMIT Internal Medicine; ATTEND Internal Medicine

== ENCOUNTER 2019-06-28 00:59 | Observation (INO) ==
[2019-06-28] MEDS ORDERED: Acetaminophen 325 MG TABLET PO ONE (01:48)
[2019-06-28] MEDS: 0.9 % Sodium Chloride 1,000 ML IVC SCH ×2 (01:55→02:48)
[2019-06-28 02:11] LABS: Bilirubin,Urine Small (Negative); Blood,Urine Negative (Negative); Clarity,Urine Cloudy (Clear); Color,Urine Dark Yellow (Yellow); Glucose,Urine (UA) Normal (Normal); Ketones,Urine Negative (Negative); Leukocyte Esterase,Urine Negative (Negative); Nitrite,Urine Negative (Negative); Protein,Urine 30 mg/dL (Neg-Trace); Specific Gravity,Urine 1.026 (1.010-1.025); Urobilinogen,Urine Normal (Normal)
[2019-06-28 02:12] LABS: Basophils % 0.2 %; Eosinophils # 0.2 K/mcL (0.0-0.6); Eosinophils % 1.2 %; Hematocrit 41.4 % (35.3-44.9); Hemoglobin 13.8 g/dL (11.5-15.4); Immature Granulocytes % 0.5 % (0-4); Lymphocytes % 15.4 %; Mean Corpuscular HGB Conc 33.3 g/dL (31.6-35.5); Mean Corpuscular Hemoglobin 32.9 pg (28.0-33.3); Mean Corpuscular Volume 98.8 fL (83.0-100.0); Mean Platelet Volume 10.9 fL (9.4-12.4); Monocytes # 0.7 K/mcL (0.0-1.3); Monocytes % 5.2 %; Platelet Count 271 K/mcL (140-400); Red Blood Count 4.19 M/mcL (3.82-4.97); Red Cell Distribution Width 12.6 % (11.5-14.5); Segmented Neutrophils % 77.5 %; White Blood Count 12.9 K/mcL (4.3-11.1)
[2019-06-28 02:14] LABS: Hyaline Casts,Urine None Seen per lpf (None-Few); RBC,Urine 0-3 per hpf (0-3); Squamous Epithelial Cell,Urine Many per lpf (None-Few)
[2019-06-28 02:23] LABS: Bacteria,Urine Moderate per hpf (None-Few); Calcium Oxalate Crystals,Urine Present
[2019-06-28] MEDS ORDERED: cefTRIAXone 1,000 MG in Water for inj. (sterile) 10 ML IVP ONE (02:27)
[2019-06-28 02:28] LABS: Amphetamine Screen,Urine Positive ng/mL (Cutoff=1000); Barbiturate Screen,Urine Negative ng/mL (Cutoff=200); Benzodiazepines Screen,Urine Negative ng/mL (Cutoff=200); Cannabinoid Screen,Urine Negative ng/mL (Cutoff = 50); Cocaine Screen,Urine Negative ng/mL (Cutoff= 300); Opiate Screen,Urine Negative ng/mL (Cutoff=300); Phencyclidine Screen,Urine Negative ng/mL (Cutoff=25)
[2019-06-28 03:03] LABS: Acetaminophen < 10 mcg/mL (10-20); Alanine Aminotransferase 30 Units/L (7-52); Albumin 4.6 g/dL (3.5-5.7); Albumin/Globulin Ratio 1.5 (1.1-2.2); Alkaline Phosphatase 63 Units/L (34-104); Aspartate Amino Transferase 19 Units/L (13-39); BUN/Creatinine Ratio 19 (6-26); Bilirubin,Direct 0.2 mg/dL (0.0-0.2); Bilirubin,Indirect 0.5 mg/dL (0.0-1.0); Bilirubin,Total 0.7 mg/dL (0.3-1.0); Blood Urea Nitrogen 27 mg/dL (6-20); Calcium 9.6 mg/dL (8.6-10.3); Carbon Dioxide 25 mEq/L (23-29); Chloride 106 mEq/L (98-107); Globulin 3.1 g/dL (2.4-3.5); Glucose 207 mg/dL (70-105); Magnesium 1.9 mg/dL (1.6-2.6); Osmolality,Calculated 303 (280-300); Potassium 3.4 mEq/L (3.5-5.1); Salicylate < 2.5 mg/dL (15.0-30.0); Sodium 141 mEq/L (136-145); Total Protein 7.7 g/dL (6.4-8.9); Troponin I < 0.03 ng/mL (< 0.04); eGFR For African Americans 53 (> 60); eGFR For Non-African Americans 44 (> 60)
[2019-06-28 03:49] LABS: Ethanol < 10 mg/dL (Less than 10)
[2019-06-28] MEDS ORDERED: Naloxone 0.4 MG/ML INJ IVP PRN (04:22)
[2019-06-28] MEDS ORDERED: 0.9 % Sodium Chloride 1,000 ML IVC SCH (06:15)
[2019-06-28 15:50] VITALS: BP 126/87
[2019-06-28] MEDS ORDERED: *HR* Heparin 5,000 UNIT/ML VIAL SQ SCH (18:00)
[2019-06-28] MEDS ORDERED: Aminoglycoside Consult 1 EACH MC ONE (18:59)
[2019-06-29] MEDS ORDERED: cefTRIAXone 1,000 MG in Water for inj. (sterile) 10 ML IVP SCH (09:00)
== END 2019-06-28 19:00 | disposition left against medical advice (07) ==
LOC: 2NENU 00:59 → EMEROOARM 00:59 → SUATTDRO 03:39 → 2NENU 04:22
PROVIDERS: ADMIT Student in an Organized Health Care Education/Training Program; ATTEND Internal Medicine